=== PATIENT | female | born 1950 | race Two or more races ===

== ENCOUNTER 2020-03-16 08:55 | Outpatient (REF) | payer MEDICARE, MEDICAID, SELFPAY ==
[2020-03-16 10:42] LABS: Alanine Aminotransferase 18 U/L (0-31); Albumin Level 4.2 g/dL (3.5-5.0); Alkaline Phosphatase 99 U/L (39-117); Aspartate Amino Transferase 25 U/L (5-31); Bilirubin Direct 0.2 mg/dL (0.0-0.5); Bilirubin Total 0.5 mg/dL (0.0-1.0); Cholesterol 203 mg/dL; HDL Cholesterol 48 mg/dL; LDL Cholesterol Calculated 134 mg/dl; Total Protein 6.9 g/dL (6.5-8.0); Triglycerides 109 mg/dL
== END 2020-03-16 08:56 | disposition home or self-care (01) ==
LOC: HO.LAB 08:55
PROVIDERS: PCP Internal Medicine; Visit Provider Internal Medicine
DX: I10 Essential (primary) hypertension (principal); F41.9 Anxiety disorder, unspecified; K21.9 Gastro-esophageal reflux disease without esophagitis; E78.00 Pure hypercholesterolemia, unspecified; M25.511 Pain in right shoulder; M25.562 Pain in left knee
CPT/HCPCS: 36415; 80061; 80076

== ENCOUNTER 2020-08-13 10:14 | Outpatient (REF) | payer MEDICARE, MEDICAID, SELFPAY ==
--- NOTE | ~2020-08-13 | XR_ITS ---
EXAMINATION: XR BILATERAL HIPS WITH AP PELVIS CLINICAL INFORMATION: Low back pain. COMPARISON: None TECHNIQUE: AP view of the pelvis and single views of each hip were obtained. FINDINGS: Minimal degenerative joint changes are seen bilaterally. 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 There is no acute fracture. The bony pelvis is intact. The soft tissues are unremarkable. XR/XR hip BI w PEL1V IMPRESSION: Minimal bilateral hip degenerative joint changes and mild protrusio acetabuli bilaterally without acute abnormality.
== END 2020-08-13 10:15 | disposition home or self-care (01) ==
LOC: HO.XRAY 10:14
PROVIDERS: PCP Internal Medicine; Visit Provider Internal Medicine
DX: M54.5 Low back pain (principal)
CPT/HCPCS: 73521

== ENCOUNTER 2020-08-19 11:38 | Outpatient (REF) | payer MEDICARE, MEDICAID, SELFPAY ==
--- NOTE | ~2020-08-19 | MM_ITS ---
EXAMINATION: MM SCREENING DIGITAL BREAST TOMOSYNTHESIS, BILATERAL CLINICAL INFORMATION: Screening. Asymptomatic. The lifetime risk of breast cancer based on the Tyrer-Cuzick Model is 2.5%. COMPARISON: Mammography: 01/25/2019 and studies dating back to 10/23/2013 TECHNIQUE: Digital breast tomosynthesis is performed in both the craniocaudal and mediolateral oblique views along with computer-aided detection (CAD). Synthesized 2D images are generated from the tomosynthesis. FINDINGS: There are scattered areas of fibroglandular density (ACR BI-RADS breast composition Category b). There is a stable appearance of the left breast with no new abnormal dominant mass or suspicious grouping of microcalcifications. About the anterior upper outer aspect of the right breast, there is a region of architectural distortion for which spot compression views and ultrasound is recommended. MM/MM tomosynthesis screening BI IMPRESSION: Right breast density for further evaluation, as described. ASSESSMENT: BI-RADS 0: Incomplete - Need Additional Imaging Evaluation RECOMMENDATION: 1. Additional views of the right breast. 2. Targeted ultrasound if warranted after review of the additional views. 3. Radiology department staff will contact the patient for additional imaging. This patient's information was entered into a reminder system with a target due date for their next mammogram.
== END 2020-08-19 11:39 | disposition home or self-care (01) ==
LOC: HO.MAMMO 11:38
PROVIDERS: Visit Provider Internal Medicine
DX: Z12.31 Encounter for screening mammogram for malignant neoplasm of breast (principal)
CPT/HCPCS: 77063; 77067

== ENCOUNTER 2020-08-31 09:53 | Outpatient (REF) | payer MEDICARE, MEDICAID, SELFPAY ==
--- NOTE | ~2020-08-31 | MM_ITS ---
EXAMINATION: MM DIAGNOSTIC DIGITAL BREAST TOMOSYNTHESIS, RIGHT CLINICAL INFORMATION: Recall from screening for question of asymmetric density and/or architectural changes anterior upper outer right breast. TC score 3%. COMPARISON: Mammography: 08/19/2020, 01/25/2019, 01/22/2018, 01/19/2017, 12/16/2015, 11/13/2014 TECHNIQUE: Digital breast tomosynthesis is performed. 2D images are generated from the tomosynthesis. The following views are obtained: 3-D spot CC, 3-D spot ML. FINDINGS: There are scattered areas of fibroglandular density (ACR BI-RADS breast composition Category b). The additional views show fibroglandular tissue in the area of interest similar to multiple prior exams. There is no developing density or interval mass or architectural abnormality. No significant changes. Results are discussed with the patient at time of visit, using an bakery supervisor. MM/MM tomosynthesis added views R IMPRESSION: Additional views show fibroglandular tissue similar to prior studies. No significant changes. ASSESSMENT: BI-RADS 2: Benign RECOMMENDATION: Routine annual mammography screening. This patient's information was entered into a reminder system with a target due date for their next mammogram.
== END 2020-08-31 09:54 | disposition home or self-care (01) ==
LOC: HO.MAMMO 09:53
PROVIDERS: Visit Provider Internal Medicine
DX: R92.2 Inconclusive mammogram (principal)
CPT/HCPCS: 77061; 77065

== ENCOUNTER 2020-12-28 09:13 | Outpatient (REF) | payer MEDICARE, MEDICAID, SELFPAY ==
[2020-12-28 09:43] LABS: MANUAL DIFF FLAG NO
[2020-12-28 09:54] LABS: Basophils Percent Auto 0.4 % (0-2); Eosinophils Absolute Auto 0.4 X10*3/uL (0.0-0.4); Hematocrit 40.8 % (37-47); Hemoglobin 13.4 g/dl (12.0-16.0); Imm Gran Abs Auto 0.03 X10*3/uL (0.00-0.03); Imm Gran Pct Auto 0.4 % (0.0-0.4); Lymphocytes Absolute Auto 2.3 X10*3/uL (1.2-4.9); Mean Corpuscular HGB Conc 32.8 g/dl (31.0-35.0); Mean Corpuscular Hemoglobin 30.2 pg (27.0-33.0); Mean Corpuscular Volume 92.1 fL (80-98); Mean Platelet Volume 11.1 fL (9.4-12.3); Monocytes Absolute Auto 0.6 X10*3/uL (0.1-1.2); Monocytes Percent Auto 8.4 % (2-11); Neutrophils Absolute Auto 4.1 X10*3/uL (2.0-8.3); Neutrophils Percent Auto 54.8 % (45-73); Platelet Count 169 X10*3/uL (160-400); Red Blood Count 4.43 X10*6/uL (4.20-5.50); Red Cell Distribution Width 13.6 % (11.0-16.0); White Blood Count 7.5 X10*3/uL (4.8-10.8)
[2020-12-28 10:16] LABS: Alanine Aminotransferase 12 U/L (0-31); Albumin Level 4.1 g/dL (3.5-5.0); Alkaline Phosphatase 93 U/L (39-117); Anion Gap 10 (12-20); Aspartate Amino Transferase 23 U/L (5-31); Bilirubin Total 0.7 mg/dL (0.0-1.0); Blood Urea Nitrogen 20 mg/dL (9-16); Calcium 9.7 mg/dL (8.4-10.2); Carbon Dioxide 29 mmol/L (22-29); Chloride 105 mmol/L (96-108); Cholesterol 211 mg/dL; Estimated Glomerular Filt Rate 56; Glucose Random 82 mg/dL (60-115); HDL Cholesterol 43 mg/dL; LDL Cholesterol Calculated 144 mg/dl; Potassium 4.7 mmol/L (3.3-5.1); Sodium 139 mmol/L (135-145); Total Protein 6.9 g/dL (6.5-8.0); Triglycerides 122 mg/dL
[2020-12-28 10:40] LABS: Free T4 (Free Thyroxine) 0.91 ng/dL (0.71-1.85); Thyroid Stimulating Hormone 1.56 uIU/mL (0.32-4.0); Vitamin D 25-OH Total 34.4 ng/mL (>30)
[2020-12-28 10:46] LABS: Folate 12.2 ng/mL (> or = 4.0); Vitamin B12 421 pg/mL (200-900)
== END 2020-12-28 09:14 | disposition home or self-care (01) ==
LOC: HO.LAB 09:13
PROVIDERS: PCP Internal Medicine; Visit Provider Internal Medicine
DX: E78.00 Pure hypercholesterolemia, unspecified (principal)
CPT/HCPCS: 36415; 80053; 80061; 82306; 82607; 82746; 84439; 84443; 85025

== ENCOUNTER → 2021-05-27 11:06 | Outpatient (BNVA) | payer MEDICARE, MEDICAID, SELFPAY | PROVIDERS: PCP Internal Medicine; Visit Provider Internal Medicine Endocrinology, Diabetes & Metabolism | DX: E04.1 Nontoxic single thyroid nodule (principal) | CPT/HCPCS: 99212 ==

== ENCOUNTER 2021-07-09 09:04 | Outpatient (REF) | payer MEDICARE, MEDICAID, SELFPAY ==
--- NOTE | ~2021-07-09 | XR_ITS ---
EXAMINATION: XR chest 2V CLINICAL INFORMATION: Reason for Exam Z72.0 - Tobacco use COMPARISON: Chest radiograph 10/19/2015 TECHNIQUE: 2 views of the chest XR/XR chest 2V FINDINGS/IMPRESSION: Suspect underlying emphysema. No focal consolidation. No pneumothorax. No pleural effusion. Normal cardiomediastinal silhouette.
--- NOTE | ~2021-07-09 | FL_ITS ---
EXAMINATION: XR FLUOROSCOPY UPPER GI WITH AIR CLINICAL INFORMATION: Dysphagia COMPARISON: CT from 03/21/2018 TECHNIQUE: Fluoroscopic assessment of the upper GI tract was performed in various upright and supine/prone obliquities utilizing thin density barium contrast material. FINDINGS: The esophagus was normal in course, caliber, and contour. There was normal distensibility with no fixed segment of narrowing. No focal mucosal abnormality was identified. Mild esophageal dysmotility was seen with small volume retention of contrast in the esophagus. No abnormal tertiary contractions. Contrast passed freely across the gastroesophageal junction into the stomach. No significant hiatal hernia. There was normal distensibility of the stomach with no focal abnormality identified. There was somewhat slow gastric emptying into the duodenum which demonstrated a normal appearance. While a small amount of contrast did exit into the duodenum, the majority stayed within the stomach. No gastroesophageal reflux was observed. FLUOROSCOPY TIME: 2.9 minutes DOSE AREA PRODUCT: 21.028 Gy-cm2 (perea-centimeter squared) FL/FL upper GI w air IMPRESSION: Mild esophageal dysmotility. Somewhat slow gastric emptying. While a small amount of contrast did extend into the small bowel, the majority of the contrast remained in the stomach for the entirety of the exam.
== END 2021-07-09 09:05 | disposition home or self-care (01) ==
LOC: HO.XRAY 09:04
PROVIDERS: PCP Internal Medicine; Visit Provider Internal Medicine
DX: R13.10 Dysphagia, unspecified (principal); Z72.0 Tobacco use
CPT/HCPCS: 71046; 74246

== ENCOUNTER 2021-07-29 10:42 | Outpatient (REF) | payer MEDICARE, MEDICAID, SELFPAY ==
--- NOTE | ~2021-07-29 | US_ITS ---
EXAMINATION: US THYROID CLINICAL INFORMATION: Nontoxic multinodular goiter. COMPARISON: US thyroid 03/21/2018 and 02/13/2017. US-guided thyroid biopsy 01/21/2016. TECHNIQUE: Linear transducer grayscale and color Doppler examination with attention to the region of the thyroid. FINDINGS: SIZE: Measurements of the thyroid lobes and nodules are given in sagittal, anteroposterior and transverse dimensions respectively. Right Thyroid Lobe: 4.3 x 1.3 x 1.4 cm, volume 3.9 mL. Previously 4.5 x 1.4 x 1.5 cm, volume 4.8 mL. Parenchyma: The gland echotexture is homogeneous. Thyroid vascularity is normal. Left Thyroid Lobe: 5.7 x 1.8 x 2.1 cm, volume 11.5 mL. Previously 5.4 x 1.7 x 2.1 cm, volume 9.7 mL. Parenchyma: The gland echotexture is homogeneous. Thyroid vascularity is normal. Isthmus: 0.20 cm in maximum AP dimension. Previously 0.20 cm. Estimated total number of nodules greater than or equal to 1 cm: 4. Label Fuser Tender nodules are described as follows: 1. Location: Right superior. Size: 0.25 x 0.16 x 0.23 cm, volume 0.005 mL. Previously: Not documented on the previous study. Nodule characteristics: Composition: Spongiform (0). Echogenicity: Anechoic (0). Shape: Not taller than wide (0). Margins: Smooth (0). Echogenic Foci: None (0). ACR TI-RADS total points: 0 ACR TI-RADS category: 1 2. Location: Left mid. Size: 1.2 x 1.1 x 1.2 cm, volume 0.75 mL. Previously: Not documented on the previous study. Nodule characteristics: Composition: Spongiform (0). Echogenicity: Anechoic (0). Shape: Not taller than wide (0). Margins: Smooth (0). Echogenic Foci: None (0). ACR TI-RADS total points: 0 ACR TI-RADS category: 1 3. Location: Left mid. Size: 1.6 x 1.3 x 1.4 cm, volume 1.5 mL. Previously: Not documented on the previous study. Nodule characteristics: Composition: Solid/almost completely solid (2). Echogenicity: Hypoechoic (2). Shape: Not taller than wide (0). Margins: Smooth (0). Echogenic Foci: Punctate echogenic foci (3). ACR TI-RADS total points: 7 ACR TI-RADS category: 5 4. Location: Left inferior. Size: 1.8 x 0.90 x 1.2 cm, volume 0.94 mL. Previously: Not documented on the previous study. Nodule characteristics: Composition: Solid/almost completely solid (2). Echogenicity: Isoechoic (1). Shape: Not taller than wide (0). Margins: Smooth (0). Echogenic Foci: None (0). ACR TI-RADS total points: 3 ACR TI-RADS category: 3 5. Location: Left inferior. Size: 1.6 x 0.73 x 1.2 cm, volume 0.73 mL. Previously: Not documented on the previous study. Nodule characteristics: Composition: Solid/almost completely solid (2). Echogenicity: Isoechoic (1). Shape: Not taller than wide (0). Margins: Smooth (0). Echogenic Foci: None (0). ACR TI-RADS total points: 3 ACR TI-RADS category: 3 NODES: No lymphadenopathy is seen in the tissue surrounding the thyroid gland. US/US thyroid IMPRESSION: Bilateral thyroid nodules are seen, as detailed.. The 1.6 cm and maximal diameter left thyroid lobe nodule meets ACR biopsy criteria and is amenable to ultrasound-guided biopsy, if clinically indicated and not already performed. ACR TI-RADS RECOMMENDATION REFERENCE: Ultrasound-guided fine-needle aspiration, followup ultrasound, no further follow up. * TR1 (0 point) and TR 2 (2 points): No FNA or follow up * TR3 (3 points): FNA if more than or equal to 2.5 cm in maximum dimension, followup ultrasound in 1, 3 and 5 years if 1.5 to 2.4 cm in maximum dimension. * TR4 (4-6 points): FNA if more than or equal to 1.5 cm in maximum dimension, followup ultrasound in 1, 2, 3 and 5 years if 1 to 1.4 cm in maximum dimension. * TR5 (more than or equal to 7 points): FNA if more than or equal to 1 cm in maximum dimension, followup ultrasound every year for 5 years if 0.5 to 0.9 cm in maximum dimension. * TR3, TR4 or TR5 nodules that are below the size threshold for follow up receive no follow up.
== END 2021-07-29 10:43 | disposition home or self-care (01) ==
LOC: HO.US 10:42
PROVIDERS: Visit Provider Internal Medicine Endocrinology, Diabetes & Metabolism
DX: E04.2 Nontoxic multinodular goiter (principal)
CPT/HCPCS: 76536

== ENCOUNTER 2021-10-21 13:00 | Outpatient (RCR) | payer MEDICARE, MEDICAID, SELFPAY ==
[2021-08-30 10:15] VITALS: BP 147/77; PULSE 58; O2SAT 98
--- NOTE | 2021-08-30 11:19 | MHC.PT.EP ---
[facility] Office [place] Office [place] Office [address] Philip Oscar [address] [phone] F: [phone] F: [phone] F: [phone] F: [phone] Physical Therapy Plan of Care Date of Evaluation: Date of Surgery: Diagnosis: LBP Assessment: 71 YO FEMALE REF TO PT WITH LBP/ Rt SCIATICA. 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 Pt CURRENTLY AMB W A CANE. SHE HAS INCREASING RIGHT HIP AND LUMBOSACRAL PAIN OVER THE LAST FEW MONTHS. UPON EXAM SHE DEMONSTRATES DECREASED JUNAID HIP ROM, ALTERED POSTURE AND PELVIC POSITIONING, ALTERED SOFT TISSUE MOBILITY AND INCREASED LB AND Rt LE RADIC PAIN. FUNCTIONAL LIMITATIONS INCLUDE DECREASED ABILITY TO PERFORM STATIC STANDING, AMBULATION GREATER THAN 10 MINS WITHOUT INCREASED PAIN, DECREASED ABILITY TO PERFORM STAIR NAVIGATION. SHE REPORTS DECREASED ABILITY TO PERFORM HOMEMAKING AND SELF CARE TASKS AND REPORTS DISRUPTED SLEEP. Pt IS A GOOD PT CANDIDATE TO ADDRESS THE ABOVE FINDINGS, PAIN MGMT, DEV SELF- SX MGMT STRATEGIES, AND MAXIMIZING FUNCTIONAL INDEPENDENCE, W CAR CONSTRUCTION SUPERINTENDENT ASSIST. Frequency and Duration: The patient will be seen 2 x WK x 4 WKS Short Term Goals: *Pt'S LBP DECR TO 2-3/10 AND Rt LE SXS DECR BY 50% IN 2 WKS *Pt DEMON IMPROVED FLEXIBILITY IN JUNAID HIP ROTAT / HS IN 2 WKS * Pt DEMON PROPER FUNCT SQUAT AND POSTURAL SELF-CORRECT TECHN IN 2 WKS Fpc Goals: *Pt AND HER CAREGIVER INDEP W HEP, PROGRESSIVE STRENGTHENING, AND SELF-SX MGMT STRATEGIES IN 4 WKS *Pt DEMON INDEP SELF CORRECT POSTURE/ POSITIONING TO REDUCE LB STRESS *Pt INITIATE WALKING PGM W HER CAR CONSTRUCTION SUPERINTENDENT IN 4 WKS Treatment Plan: Modalities to reduce pain, spasms and effusion. Manual therapy to restore motion and function. Therapeutic exercise to improve strength and flexibility. Neuromuscular re-education for posture and balance. Therapeutic activities to return to functional activities of daily living. Electronically signed by: Aurora Villar,PT Please sign and return to therapist. Thank you for your referral.
--- NOTE | 2021-10-21 15:17 | MHC.PT.DC ---
[facility] [place] Office [place] Office [place] Office [address] Philip Oscar [address] [phone] F: [phone] F: [phone] F: [phone] F: [phone] Physical Therapy Discharge Report Diagnosis: LBP Date of Surgery: Date of Evaluation: 08/30/21 Date of Discharge: 10/21/21 Treatments to Date: 7 Cancellations to Date: 1 No Shows to Date: 1 Discharge Status: Improved Function Discharge Summary: Pt HAS MADE SOME PROGRESS IN PT, ADDRESSING HER LBP. 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 HER OSWESTRY SCORE HAS IMPROVED- SHE DEMON IMPROVED POSTURAL AWARENESS, GAIT EFFICIENCY (W RESPECT TO HER KNEE PAIN). Pt IS D/C AT THIS TIME W HER HEP- SHE MET HER PT GOALS TO MAX POTENTIAL AT THIS TIME. Electronically signed by: Aurora Villar,PT Please sign and return to therapist. Thank you for your referral.
== END 2021-10-21 15:17 | disposition home or self-care (01) ==
LOC: HO.PT 13:00
PROVIDERS: PCP Internal Medicine; Visit Provider Nurse Practitioner Family
DX: M54.50 Low back pain, unspecified (principal)
CPT/HCPCS: 97110; 97140; 97162; 97530

== ENCOUNTER 2021-12-16 12:26 | Outpatient (REF) | payer MEDICARE, MEDICAID, SELFPAY ==
--- NOTE | ~2021-12-16 | MM_ITS ---
EXAMINATION: MM SCREENING DIGITAL BREAST TOMOSYNTHESIS, BILATERAL CLINICAL INFORMATION: Screening. Asymptomatic. The lifetime risk of breast cancer based on the Tyrer-Cuzick Model is 2%. COMPARISON: Mammography: 08/31/2020, 08/19/2020, 01/25/2019, 01/22/2018 TECHNIQUE: Digital breast tomosynthesis is performed in both the craniocaudal and mediolateral oblique views along with computer-aided detection (CAD). Synthesized 2D images are generated from the tomosynthesis. FINDINGS: There are scattered areas of fibroglandular density (ACR BI-RADS breast composition Category b). There are no significant masses, abnormal calcifications, or other abnormalities. Parenchymal pattern is similar to prior studies. The axilla and skin contours are unremarkable. MM/MM tomosynthesis screening BI IMPRESSION: No mammographic evidence of malignancy. ASSESSMENT: BI-RADS 1: Negative RECOMMENDATION: Routine annual mammography screening. This patient's information was entered into a reminder system with a target due date for their next mammogram.
== END 2021-12-16 12:27 | disposition home or self-care (01) ==
LOC: HO.MAMMO 12:26
PROVIDERS: PCP Internal Medicine; Visit Provider Internal Medicine
DX: Z12.31 Encounter for screening mammogram for malignant neoplasm of breast (principal)
CPT/HCPCS: 77063; 77067

== ENCOUNTER 2022-01-13 09:28 | Outpatient (REF) | payer MEDICARE, MEDICAID, SELFPAY ==
--- NOTE | 2022-01-13 10:17 | P.BOP_ITS ---
Brief Operative Note Date of Service: 01/13/22 Pre-op diagnosis: Multinodular Thyroid Procedure: The Patient presented for repeat thyroid US with possible FNA biopsy today. She had a previous FNA biopsy of a 3.0 x 0.8 x 1.8 cm thyroid nodule in [address] Vidales with benign cytology. US of the thyroid today revealed a solitary nodule within the L mid pole measuring 2.8 x 1.9 x 1.5 cm. No FNA biopsy indicated as this nodule has not significant grown or changed in size. Surgeon: Yue Virk, DO Was an Motorized Squad Sergeant used for this Procedure?: No Estimated blood loss (mL): 0
== END 2022-01-13 09:29 | disposition home or self-care (01) ==
LOC: HO.US 09:28
PROVIDERS: Visit Provider Internal Medicine Endocrinology, Diabetes & Metabolism
DX: E04.1 Nontoxic single thyroid nodule (principal)
CPT/HCPCS: 76536

== ENCOUNTER → 2022-01-27 12:18 | Outpatient (BNVA) | payer MEDICARE, MEDICAID, SELFPAY | PROVIDERS: PCP Internal Medicine; Visit Provider Internal Medicine | DX: E04.2 Nontoxic multinodular goiter (principal) | CPT/HCPCS: 99212 ==

== ENCOUNTER 2022-08-11 01:46 | Emergency (ER) | payer MEDICARE, MEDICAID, SELFPAY ==
--- NOTE | ~2022-08-11 | CT_ITS ---
EXAMINATION: CT HEAD WITHOUT CONTRAST CLINICAL INFORMATION: Fall COMPARISON: 05/03/2014 TECHNIQUE: Contiguous axial imaging was performed from the skull base to vertex without intravenous administration of contrast. This CT examination was performed using dose optimization techniques as appropriate, variously including the following: *Automated exposure control *Adjustment of mA and/or kV according to patient size (this includes techniques or standardized protocols for targeted exams where dose is matched to indication/reason for exam; i.e. extremities or head) *Use of iterative reconstruction technique DLP: 564 mGy-cm FINDINGS: There is no evidence of acute intracranial hemorrhage or territorial infarction. No abnormal mass-effect or midline shift is seen. Gonzalez to white matter differentiation is well preserved. No extra-axial fluid collections are identified. The ventricles are normal in size. There is moderate periventricular white matter hypoattenuation consistent with chronic small vessel ischemic disease. The osseous structures and soft tissues are normal. There is mucosal thickening throughout the ethmoid air cells and to a lesser degree in the right sphenoid, left maxillary, and left frontal sinuses. The mastoid air cells are well-aerated. CT/CT head/brain wo IV con IMPRESSION: No acute intracranial pathology. Chronic small vessel ischemic disease.
[2022-08-11 01:51] VITALS: BP 156/84; PULSE 56; O2SAT 100
[2022-08-11 02:02] VITALS: BP 178/80; PULSE 50; RESP 16; TEMP 36.7; O2SAT 98; BMI 23.5
--- NOTE | 2022-08-11 02:13 | MHC.EDTECH ---
PATIENT CAME IN VIA [facility] ,PATIENT WAS TAKEN TO THE BATHROOM AND WAS ASSISTED TO CHANGE INTO (GREEN GOWN AND BLUE PANTS ),PATIENT ANDREA WAS LOCKED UP IN POD LOCKER # 7.
--- NOTE | 2022-08-11 03:12 | MHC.EDTECH ---
blood drawn and urine sample collected and sent to lab ,pt had a sandwich and a glass of water for snack .
[2022-08-11 03:17] LABS: Basophils Percent Auto 0.5 % (0-2); Eosinophils Absolute Auto 0.5 X10*3/uL (0.0-0.4); Eosinophils Percent Auto 6.1 % (0-4); Hematocrit 39.7 % (37.0-47.0); Imm Gran Abs Auto 0.02 X10*3/uL (0.00-0.03); Imm Gran Pct Auto 0.3 % (0.0-0.4); Lymphocytes Absolute Auto 3.5 X10*3/uL (1.2-4.9); Lymphocytes Percent Auto 45.3 % (20-40); MANUAL DIFF FLAG NO; Mean Corpuscular HGB Conc 32.7 g/dl (31.0-35.0); Mean Corpuscular Hemoglobin 29.9 pg (27.0-33.0); Mean Corpuscular Volume 91.3 fL (80.0-98.0); Mean Platelet Volume 10.5 fL (9.4-12.3); Monocytes Absolute Auto 0.6 X10*3/uL (0.1-1.2); Monocytes Percent Auto 7.5 % (2-11); Neutrophils Absolute Auto 3.1 x10*3/uL (2.0-8.3); Neutrophils Percent Auto 40.3 % (45-73); Platelet Count 172 X10*3/uL (160-400); Red Blood Count 4.35 X10*6/uL (4.20-5.50); Red Cell Distribution Width 13.5 % (11.0-16.0); White Blood Count 7.7 X10*3/uL (4.8-10.8)
[2022-08-11 03:28] LABS: Amphetamine Screen Urine Not Detected (Not Detect); Barbiturates, Urine Not Detected (Not Detect); Benzodiazepines Screen Urine Not Detected (Not Detect); Cannabinoid Screen Urine Not Detected (Not Detect); Cocaine Screen Urine Not Detected (Not Detect); Fentanyl, urine Not Detected (Not Detect); Opiate Screen Urine Not Detected (Not Detect); Phencyclidine Screen Urine Not Detected (Not Detect)
[2022-08-11 03:33] LABS: Alanine Aminotransferase 14 U/L (0-31); Albumin Level 4.1 g/dL (3.5-5.0); Alkaline Phosphatase 91 U/L (39-117); Anion Gap 11 (12-20); Aspartate Amino Transferase 31 U/L (5-31); Bilirubin Total 0.3 mg/dL (0.0-1.0); Blood Urea Nitrogen 21 mg/dL (9-16); Calcium 9.6 mg/dL (8.4-10.2); Carbon Dioxide 27 mmol/L (22-29); Chloride 103 mmol/L (96-108); Creatinine Clr Calc Pharmacy 38.1; Estimated Glomerular Filt Rate 59; Ethanol 133 mg/dL; Glucose Random 82 mg/dL (60-115); Potassium 4.3 mmol/L (3.3-5.1); Sodium 137 mmol/L (135-145); Total Protein 7.1 g/dL (6.5-8.0)
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
[2022-08-11 04:00] VITALS: BP 133/64; PULSE 72; RESP 16; TEMP 36.7; O2SAT 97
--- NOTE | 2022-08-11 04:10 | PC.NURSE ---
Pt denia greene, no acute distress at this time, WCTM.
--- NOTE | 2022-08-11 04:24 | MHC.EDTECH ---
0400 rounding done ,vitals sign taken ,cpvid swab collected and sent to lab ,pt sleeping warm blanket giving .
[2022-08-11 04:41] LABS: COVID-19 Test Negative (Negative); IDNOW Serial# BCCEAD1C
[2022-08-11 06:00] VITALS: BP 125/63; PULSE 63; RESP 16; TEMP 36.8; O2SAT 97
--- NOTE | 2022-08-11 06:00 | MHC.EDTECH ---
0600 rounding done ,vitals sign taken ,pt sleeping .
--- NOTE | 2022-08-11 06:52 | PC.NURSE ---
resting on stretcher, rr even/unlabored. awaiting care team consult per previous shift rn.
[2022-08-11 09:12] LABS: Appearance Urine Clear; Color Urine Yellow; Glucose Urine UA Negative (Negative); Leukocyte Esterase Urine Negative (Negative); Nitrite Urine Negative (Negative); Specific Gravity - Urine <= 1.005 (1.005-1.025); UMIC TRIGGER UACC YES; Urine Blood Trace (Negative); Urine Ketones Negative (Negative); Urine Protein Negative (Neg-Trace)
[2022-08-11 09:14] LABS: Bacteria Urine None Seen (None Seen); Hyaline Casts Urine 0-2 /LPF (0-2); RBC Urine 0-2 /HPF (0-2); Squamous Epithelial Cell Urine 0-2 /HPF (0-2); WBC Urine 0-5 /HPF (0-5)
[2022-08-11 09:25] LABS: Amphetamine Screen Urine Not Detected (Not Detect); Barbiturates, Urine Not Detected (Not Detect); Benzodiazepines Screen Urine Not Detected (Not Detect); Cannabinoid Screen Urine Not Detected (Not Detect); Cocaine Screen Urine Not Detected (Not Detect); Fentanyl, urine Not Detected (Not Detect); Opiate Screen Urine Not Detected (Not Detect); Phencyclidine Screen Urine Not Detected (Not Detect)
--- NOTE | 2022-08-11 09:47 | PC.NURSE ---
pt asking to call hr daughter, phone number for nico in contacts called without answer by this rn. will continue to try and contact daughter for pt.
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
== END 2022-08-11 10:55 | disposition home or self-care (01) ==
PROVIDERS: Physician Assistant; Emergency Provider Internal Medicine
DX: F33.1 Major depressive disorder, recurrent, moderate (principal); R45.851 Suicidal ideations; R51.9 Headache, unspecified; F10.129 Alcohol abuse with intoxication, unspecified; Y90.6 Blood alcohol level of 120-199 mg/100 ml; Z20.822 Contact with and (suspected) exposure to COVID-19; Z20.828 Contact with and (suspected) exposure to other viral communicable diseases; F17.200 Nicotine dependence, unspecified, uncomplicated; Z71.6 Tobacco abuse counseling; Z79.899 Other long term (current) drug therapy
CPT/HCPCS: 36415; 70450; 80053; 80307; 81001; 85025; 87635; 99284

== ENCOUNTER 2022-09-10 03:33 | Emergency (ER) | payer MEDICARE, MEDICAID, SELFPAY ==
[2022-09-10 03:45] VITALS: BP 142/76; BP 172/85; PULSE 52; RESP 18; TEMP 36.6; O2SAT 99; BMI 21.6
[2022-09-10 04:24] LABS: MANUAL DIFF FLAG NO
[2022-09-10 04:26] LABS: Basophils Percent Auto 0.5 % (0-2); Eosinophils Absolute Auto 0.4 X10*3/uL (0.0-0.4); Eosinophils Percent Auto 4.7 % (0-4); Hematocrit 37.3 % (37.0-47.0); Hemoglobin 12.5 g/dl (12.0-16.0); Imm Gran Abs Auto 0.01 X10*3/uL (0.00-0.03); Imm Gran Pct Auto 0.1 % (0.0-0.4); Lymphocytes Absolute Auto 3.6 X10*3/uL (1.2-4.9); Lymphocytes Percent Auto 48.5 % (20-40); Mean Corpuscular HGB Conc 33.5 g/dl (31.0-35.0); Mean Corpuscular Hemoglobin 30.3 pg (27.0-33.0); Mean Corpuscular Volume 90.5 fL (80.0-98.0); Mean Platelet Volume 10.5 fL (9.4-12.3); Monocytes Absolute Auto 0.6 X10*3/uL (0.1-1.2); Monocytes Percent Auto 8.4 % (2-11); Neutrophils Absolute Auto 2.8 x10*3/uL (2.0-8.3); Neutrophils Percent Auto 37.8 % (45-73); Platelet Count 166 X10*3/uL (160-400); Red Blood Count 4.12 X10*6/uL (4.20-5.50); Red Cell Distribution Width 13.7 % (11.0-16.0); White Blood Count 7.4 X10*3/uL (4.8-10.8)
[2022-09-10 04:27] LABS: Appearance Urine Clear; Color Urine Yellow; Glucose Urine UA Negative (Negative); Leukocyte Esterase Urine Negative (Negative); Nitrite Urine Negative (Negative); Specific Gravity - Urine <= 1.005 (1.005-1.025); UMIC TRIGGER UACC YES; Urine Blood Trace (Negative); Urine Ketones Negative (Negative); Urine Protein Negative (Neg-Trace)
[2022-09-10 04:35] LABS: Amphetamine Screen Urine Not Detected (Not Detect); Barbiturates, Urine Not Detected (Not Detect); Benzodiazepines Screen Urine Not Detected (Not Detect); Cannabinoid Screen Urine Not Detected (Not Detect); Cocaine Screen Urine Not Detected (Not Detect); Fentanyl, urine Not Detected (Not Detect); Opiate Screen Urine Not Detected (Not Detect); Phencyclidine Screen Urine Not Detected (Not Detect)
[2022-09-10 04:38] LABS: Bacteria Urine None Seen (None Seen); Hyaline Casts Urine 0-2 /LPF (0-2); RBC Urine 0-2 /HPF (0-2); Squamous Epithelial Cell Urine 0-2 /HPF (0-2); WBC Urine 0-5 /HPF (0-5)
[2022-09-10 04:39] LABS: Anion Gap 12 (12-20); Blood Urea Nitrogen 16 mg/dL (9-16); Calcium 9.4 mg/dL (8.4-10.2); Carbon Dioxide 27 mmol/L (22-29); Chloride 101 mmol/L (96-108); Estimated Glomerular Filt Rate > 60; Ethanol 168 mg/dL; Glucose Random 93 mg/dL (60-115); Potassium 3.5 mmol/L (3.3-5.1); Sodium 136 mmol/L (135-145)
--- NOTE | 2022-09-10 04:44 | PC.NURSE ---
Kel Solano at bedside with pt.
[2022-09-10 04:56] VITALS: BP 141/67; PULSE 57; RESP 18
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
== END 2022-09-10 05:52 | disposition home or self-care (01) ==
PROVIDERS: Emergency Provider Emergency Medicine
DX: F10.920 Alcohol use, unspecified with intoxication, uncomplicated (principal); Y90.6 Blood alcohol level of 120-199 mg/100 ml; F03.90 Unspecified dementia, unspecified severity, without behavioral disturbance, psychotic disturbance, mood disturbance, and anxiety; F20.9 Schizophrenia, unspecified; I10 Essential (primary) hypertension; E78.00 Pure hypercholesterolemia, unspecified; F17.210 Nicotine dependence, cigarettes, uncomplicated; Z79.899 Other long term (current) drug therapy
CPT/HCPCS: 36415; 80048; 80307; 81001; 85025; 93005; 99283

== ENCOUNTER 2022-09-28 11:19 | Outpatient (REF) | payer MEDICARE, MEDICAID, SELFPAY ==
--- NOTE | ~2022-09-28 | US_ITS ---
EXAMINATION: US THYROID CLINICAL INFORMATION: Nontoxic single thyroid nodule. Prior biopsy 07/29/2021 COMPARISON: Ultrasound thyroid 01/13/2022 and 07/29/2021. TECHNIQUE: Linear transducer grayscale and color Doppler examination with attention to the region of the thyroid. FINDINGS: SIZE: Measurements of the thyroid lobes and nodules are given in sagittal, anteroposterior and transverse dimensions respectively. Right Thyroid Lobe: 4.3 x 1.2 x 1.3 cm, volume 3.5 mL. Previously 4.3 x 1.3 x 1.4 cm, volume 3.9 mL. Parenchyma: The gland echotexture is homogeneous. Thyroid vascularity is normal. Left Thyroid Lobe: 5.2 x 1.5 x 2.2 cm, volume 9.0 mL. Previously 5.7 x 1.8 x 2.1 cm, volume 11.5 mL. Parenchyma: The gland echotexture is heterogeneous. Thyroid vascularity is normal. Isthmus: 0.2 cm in maximum AP dimension. Previously 0.2 cm. Estimated total number of nodules greater than or equal to 1 cm: 1. [employer] nodules are described as follows: 1. Location: Left mid inferior. Size: 3.6 x 1.4 x 2.0 cm, volume 5.3 mL. Previously: 3.1 x 1.5 x 1.7 cm, volume 4.1 mL. Nodule characteristics: Composition: Solid (2). Echogenicity: Isoechoic (1). Shape: Not taller than wide (0). Margins: Ill-defined (0). Echogenic Foci: Macrocalcifications (1). Punctate echogenic foci (3). ACR TI-RADS total points: 7 ACR TI-RADS category: 5 Significant change in size (>/= 20% in 2 dimensions and minimal increase of 2 mm or 50% or greater increase in volume): No Change in features: No Change in ACR TI-RADS risk category: Not applicable NODES: No lymphadenopathy is seen in the tissue surrounding the thyroid gland. US/US thyroid IMPRESSION: No significant change in 3.6 cm nodule in the mid to lower pole of the left lobe. TR 5. This fulfills the ACR criteria for FNA, if not already performed. ACR TI-RADS RECOMMENDATION REFERENCE: Ultrasound-guided fine-needle aspiration, followup ultrasound, no further follow up. * TR1 (0 point) and TR2 (2 points): No FNA or follow up. * TR3 (3 points): FNA if more than or equal to 2.5 cm in maximum dimension, followup ultrasound in 1, 3 and 5 years if 1.5 to 2.4 cm in maximum dimension. * TR4 (4-6 points): FNA if more than or equal to 1.5 cm in maximum dimension, followup ultrasound in 1, 2, 3 and 5 years if 1 to 1.4 cm in maximum dimension. * TR5 (more than or equal to 7 points): FNA if more than or equal to 1 cm in maximum dimension, followup ultrasound every year for 5 years if 0.5 to 0.9 cm in maximum dimension. * TR3, TR4 or TR5 nodules that are below the size threshold for followup receive no follow up.
--- NOTE | ~2022-09-28 | XR_ITS ---
EXAMINATION: XR CHEST CLINICAL INFORMATION: Tobacco use COMPARISON: Chest 07/09/2021 TECHNIQUE: 2 views of the chest were obtained. FINDINGS: There is no significant interval change. Suspect underlying emphysema. No focal consolidation, pneumothorax or pleural effusion. The cardiomediastinal silhouette is within normal limits. Moderate degenerative changes involve the thoracic spine. XR/XR chest 2V IMPRESSION: No acute abnormality.
== END 2022-09-28 11:20 | disposition home or self-care (01) ==
LOC: HO.US 11:19
PROVIDERS: PCP Internal Medicine; Visit Provider Internal Medicine
DX: E04.1 Nontoxic single thyroid nodule (principal); Z72.0 Tobacco use
CPT/HCPCS: 71046; 76536

== ENCOUNTER 2023-01-02 10:56 | Outpatient (AMB) | payer MEDICARE, MEDICAID, SELFPAY ==
[2023-01-02 10:59] VITALS: BP 140/78; PULSE 62; O2SAT 97; BMI 20.4
--- NOTE | 2023-01-02 10:59 | MHC.PC.OV ---
Vital Signs 01/02/23 10:59 Height 5 ft 4 in Weight 119 lb BMI 20.4 BP 140/78 H Blood Pressure Location Lt brachial Position Sitting Pulse 62 Pulse Source Pulse Oximeter Temp Source Skin Pulse Oximetry (%) 97 Oxygen Delivery Method Room Air Intake Visit Reasons: dysphagia, thyroid enlargement Sales Designer Required: No Allergies aspirin [ASA] Allergy (Unknown, Verified 01/02/23 11:03) UNKNOWN ibuprofen [From Motrin] Allergy (Unknown, Verified 01/02/23 11:03) Dizziness Penicillins Allergy (Unknown, Verified 01/02/23 11:03) UNKNOWN rivastigmine [From Exelon] Allergy (Unknown, Verified 01/02/23 11:03) Unknown Medication List - Last Reconciled 01/02/23 by Epifanio Traylor MD cholecalciferol (vitamin D3) (Vitamin D3) 25 mcg PO DAILY 30 days diclofenac sodium 1% (Arthritis Pain (diclofenac)) 2 grams topical QID PRN docusate sodium (Stool Softener) 200 mg (2 x 100 mg) PO DAILY 90 days fluoxetine 20 mg PO DAILY hydrochlorothiazide 25 mg PO DAILY 90 days meloxicam 15 mg PO DAILY metoprolol succinate ER 100 mg PO DAILY omeprazole 20 mg PO DAILY 30 days ondansetron 4 mg PO Q8H PRN 7 days simvastatin 10 mg PO QPM Tobacco use date assessed: 01/02/23 Fall risk assessment: No Falls in past year Last assessed Fall Risk: 01/02/23 Dental Screening Dental Screen Date: 01/02/23 Did you have a dental visit in the last 12 months?: No Did you have a dental problem in the last 6 months where you did not have access to dental care?: No Was dental information given to patient?: Patient has dentist HPI dysphagia, thyroid enlargement HPI Details 72-year-old female smoker with schizophrenia hypercholesterolemia GERD hypertension and dementia coming in for follow-up. Last seen in September for wellness. Patient's mammogram is due next month. Patient had ultrasound of the thyroid September 2022 showing no significant change in the 3.6 cm nodule in the mid to lower pole of the left lobe [facility] Medical History Benign hematuria Breast density Dementia GERD (gastroesophageal reflux disease) Hypercholesterolemia Hypertension Multinodular thyroid Nausea & vomiting Osteoarthritis, knee Renal calculi Schizophrenia Skin tag Thyroid nodule Tobacco abuse Trigger finger of all digits of left hand Vitamin D deficiency Surgical History History of breast biopsy History of carpal tunnel release Hx of biopsy Family History Father Myocardial infarction Mother Sarcoma Brother Kidney disease Brother H/O ETOH abuse Brother No problems noted. Social History (Updated 09/12/22 @ 15:31 by Epifanio Traylor MD) Housing: Apartment Alcohol intake: current Alcohol intake frequency: holidays/special occasions only Patient Tobacco Use Status: Current everyday Tobacco user Tobacco use type: Cigarette Cigarettes Per Day: 7 e-Cigarette/Vaping Use: Never Used Second Hand Smoke Exposure: No Current occupational status: disabled Cognitive needs: Yes Hearing needs: No Vision needs: Yes Questionnaire Thrive Questionnaire Date Thrive assessed: 05/10/21 AUDIT C Alcohol Use Questionnaire (AUDIT-C) 1. How often do you have a drink containing alcohol?: Never Total Score: 0 Score Reviewed/Action Taken: No MARY-7 AMB Questionnaire MARY-7 Date MARY - 7 assessed: 01/02/23 Source: Developed by Drs. Ky Reddy, Aysha Blue, Amrit Butcher and colleagues, with an educational vika from [email or web address]. Physical exam (Primary Care) Vital Signs: Last Vital Signs Pulse 62 01/02/23 10:59 BP 140/78 H 01/02/23 10:59 Pulse Ox 97 01/02/23 10:59 Oxygen Delivery Method Room Air 01/02/23 10:59 BMI result Body Mass Index 20.4 Tobacco/Smoking Status: Tobacco use Status Tobacco use date assessed 01/02/23 01/02/23 11:06 Patient Tobacco Use Status Current everyday Tobacco 01/02/23 11:00 Tobacco use type Cigarette 01/02/23 11:00 e-Cigarette/Vaping Use Never Used 01/02/23 11:00 Thrive Assessment: Date of Thrive Assessment Date Thrive assessed 05/10/21 01/02/23 11:00 Const General: alert; No acute distress Eyes Conjunctivae: conjunctivae normal Resp Auscultation: clear to auscultation bilaterally Cardio Rate: regular rate Rhythm: regular rhythm GI Inspection: Yes normal to inspection Extrem General: Yes normal to inspection and No edema Office Procedures Flu Questionnaire Does the patient have a severe egg allergy?: No Does the patient have severe life threatening allergies?: No Does the patient have a fever or illness today?: No Has the patient ever had Guillain-Stuttgart Syndrome?: No Has the patient ever had any past reaction to a flu shot?: No Immunizations flu vacc [id number] 6mos up(PF) 60 mcg(15 mcgx4)/0.5 mL IM syringe Performing Provider: Epifanio Traylor MD [facility] Administered by: DEREK Dominguez on 01/02/23 11:37 Dose Route Admin Location Dispensed Lot Number Expiration Date [employer] Agent 0.5 mL IM Left Deltoid 0.5 mL [id number] 09/10/23 10277-306-07 [employer] VIS Given Date VIS Provided VIS Publication Date 01/02/23 Single Vaccine 20 Eligibility Eligibility Date Funding Source Not [facility] Eligible 01/02/23 Private Assessment and Plan Assessment & Plan (1) Multinodular thyroid: Comment: September 2022o significant change in 3.6 cm nodule in the mid to lower pole of the left lobe. TR 5. This fulfills the ACR criteria for FNA, if not already performed. Code(s): E04.2 - Nontoxic multinodular goiter Plan: Noted to have a 3.6 cm nodule in the left lobe of the thyroid. 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 (3) Tobacco abuse: Code(s): Z72.0 - Tobacco use Plan: Patient strongly advised to stop smoking summation point (4) Schizophrenia: Comment: [facility] therapy Code(s): F20.9 - Schizophrenia, unspecified Qualifiers: Schizophrenia type: disorganized schizophrenia Qualified Code(s): F20.1 - Disorganized schizophrenia Plan: Continue with counseling and therapy (5) GERD (gastroesophageal reflux disease): Code(s): K21.9 - Gastro-esophageal reflux disease without esophagitis Qualifiers: Esophagitis presence: without esophagitis Qualified Code(s): K21.9 - Gastro-esophageal reflux disease without esophagitis Plan: Avoid the foods that causes that usually spicy foods, tomato products, juices, coffee, soda and foods that your sensitive to. After eating do not lie down, allow 3-4 hours before in lie down. And keep the head of bed above 30 degrees to avoid the acid from going up. (6) Hypertension: Code(s): I10 - Essential (primary) hypertension Qualifiers: Hypertension type: essential hypertension Qualified Code(s): I10 - Essential (primary) hypertension Plan: Continue with blood pressure medication. Decrease salt intake and exercise patient on metoprolol 100 mg once a day hydrochlorothiazide 25 mg once a day (7) Hypercholesterolemia: Code(s): E78.00 - Pure hypercholesterolemia, unspecified Plan: Avoid fried foods, chicken skin, eggs, butter margarine, pastries and meat. Be it pork or beef they have a lot of cholesterol LDL goal of less than 130 and triglyceride of less than 150. Patient is on simvastatin. Reminded about the blood work! 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
== END 2023-01-02 11:40 | disposition home or self-care (01) ==
PROVIDERS: PCP Internal Medicine; Visit Provider Internal Medicine
DX: E04.2 Nontoxic multinodular goiter (principal); J43.9 Emphysema, unspecified; F20.1 Disorganized schizophrenia; F02.818 Dementia in other diseases classified elsewhere, unspecified severity, with other behavioral disturbance; Z23 Encounter for immunization; Z72.0 Tobacco use; K21.9 Gastro-esophageal reflux disease without esophagitis; I10 Essential (primary) hypertension; E78.00 Pure hypercholesterolemia, unspecified
CPT/HCPCS: 90471; 90686; 99214

== ENCOUNTER 2023-01-03 12:30 | Outpatient (REF) | payer MEDICARE, MEDICAID, SELFPAY ==
--- NOTE | ~2023-01-03 | MM_ITS ---
EXAMINATION: MM SCREENING DIGITAL BREAST TOMOSYNTHESIS, BILATERAL CLINICAL INFORMATION: Screening. Asymptomatic. The patient has a history of prior right breast surgery for benign disease. COMPARISON: Mammography: This study is compared with prior exams dating back to 2018. TECHNIQUE: Digital breast tomosynthesis is performed in both the craniocaudal and mediolateral oblique views along with computer-aided detection (CAD). Synthesized 2D images are generated from the tomosynthesis. FINDINGS: There are scattered areas of fibroglandular density (ACR BI-RADS breast composition Category b). There are no significant masses, abnormal calcifications, or other abnormalities. Few, benign calcifications are present in each breast. MM/MM tomosynthesis screening BI IMPRESSION: No mammographic evidence of malignancy. ASSESSMENT: BI-RADS BI-RADS 2 - Benign Findings RECOMMENDATION: Routine annual mammography screening. 1 year F/U This examination should not preclude the clinical evaluation of a suspicious palpable abnormality. This patient's information was entered into a reminder system with a target due date for their next mammogram.
== END 2023-01-03 12:31 | disposition home or self-care (01) ==
LOC: HO.MAMMO 12:30
PROVIDERS: PCP Internal Medicine; Visit Provider Internal Medicine
DX: Z12.31 Encounter for screening mammogram for malignant neoplasm of breast (principal)
CPT/HCPCS: 77063; 77067

== ENCOUNTER → 2023-01-03 12:30 | Outpatient (BNV) | payer MEDICARE, MEDICAID, SELFPAY | PROVIDERS: PCP Internal Medicine; Visit Provider Radiology Diagnostic Radiology | DX: Z12.31 Encounter for screening mammogram for malignant neoplasm of breast (principal) | CPT/HCPCS: 77063; 77067 ==

== ENCOUNTER 2023-04-17 09:33 | Outpatient (AMB) | payer MEDICARE, MEDICAID, SELFPAY ==
[2023-04-17 09:36] VITALS: BP 140/68; PULSE 65; O2SAT 98; BMI 20.6
--- NOTE | 2023-04-17 09:36 | MHC.PC.OV ---
Vital Signs 04/17/23 09:36 Height 5 ft 4 in Weight 120 lb BMI 20.6 BP 140/68 H Blood Pressure Location Lt brachial Position Sitting Pulse 65 Pulse Source Pulse Oximeter Pulse Oximetry (%) 98 Oxygen Delivery Method Room Air Intake Visit Reasons: Hypertension Allergies aspirin [ASA] Allergy (Unknown, Verified 04/17/23 09:36) UNKNOWN ibuprofen [From Motrin] Allergy (Unknown, Verified 04/17/23 09:36) Dizziness Penicillins Allergy (Unknown, Verified 04/17/23 09:36) UNKNOWN rivastigmine [From Exelon] Allergy (Unknown, Verified 04/17/23 09:36) Unknown Medication List - Last Reconciled 04/17/23 by Epifanio Traylor MD cholecalciferol (vitamin D3) (Vitamin D3) 25 mcg PO DAILY 30 days diclofenac sodium 1% (Arthritis Pain (diclofenac)) 2 grams topical QID PRN docusate sodium (Stool Softener) 200 mg (2 x 100 mg) PO DAILY 90 days fluoxetine 20 mg PO DAILY hydrochlorothiazide 25 mg PO DAILY 90 days meloxicam 15 mg PO DAILY metoprolol succinate ER 100 mg PO DAILY omeprazole 20 mg PO DAILY 30 days ondansetron 4 mg PO Q8H PRN 7 days simvastatin 10 mg PO QPM Tobacco use date assessed: 04/17/23 Fall risk assessment: No Falls in past year Last assessed Fall Risk: 04/17/23 Dental Screening Dental Screen Date: 04/17/23 Did you have a dental visit in the last 12 months?: No Did you have a dental problem in the last 6 months where you did not have access to dental care?: No Was dental information given to patient?: No HPI Hypertension HPI Details 72-year-old female smoker with COPD multinodular thyroid GERD hypertension hypercholesterolemia and schizophrenia last seen in December 2022. Patient's mammogram is up-to-date [facility] Medical History Benign hematuria Breast density Dementia GERD (gastroesophageal reflux disease) Hypercholesterolemia Hypertension Multinodular thyroid Nausea & vomiting Osteoarthritis, knee Renal calculi Schizophrenia Skin tag Thyroid nodule Tobacco abuse Trigger finger of all digits of left hand Vitamin D deficiency Surgical History History of breast biopsy History of carpal tunnel release Hx of biopsy Family History (Updated 04/17/23 @ 09:37 by Joycelyn Lara CMA) Father Myocardial infarction Mother Sarcoma Brother Kidney disease Brother H/O ETOH abuse Brother No problems noted. Social History (Updated 09/12/22 @ 15:31 by Epifanio Traylor MD) Housing: Apartment Alcohol intake: current Alcohol intake frequency: holidays/special occasions only Patient Tobacco Use Status: Current everyday Tobacco user Tobacco use type: Cigarette Cigarettes Per Day: 7 e-Cigarette/Vaping Use: Never Used Second Hand Smoke Exposure: No Current occupational status: disabled Cognitive needs: Yes Hearing needs: No Vision needs: Yes Questionnaire PHQ-9 Over the last 2 weeks, how often have you been bothered by any of the following problems? 1. Little interest or pleasure in doing things: more than half the days 2. Feeling down, depressed, or hopeless: several days 3. Trouble falling or staying asleep, or sleeping too much: more than half the days 4. Feeling tired or having little energy: several days 5. Poor appetite or overeating: several days 6. Feeling bad about yourself - or that you are a failure or have let yourself or your family down: several days 7. Trouble concentrating on things, such as reading the newspaper or watching television: not at all 8. Moving or speaking so slowly that other people could have noticed. Or the opposite - being so fidgety or restless that you have been moving around a lot more than usual: not at all 9. Thoughts that you would be better off or of hurting yourself in some way: not at all Total score: 8 Source: Developed by Drs. Ky Reddy, Aysha Blue, Amrit Butcher and colleagues, with an educational vika from [employer]. Thrive Questionnaire Date Thrive assessed: 04/17/23 I am a: Parent/Caregiver What is your living situation today?: I have a steady place to live Within the past 12 months, did the food you bought not last and you didn't have the money to get more?: Never true Within the past 12 months, did you worry whether your food would run out before you got money to buy more?: Never true Do you have trouble paying for medicines?: No Do you have trouble getting transportation to medical appointments?: No Do you have trouble paying your heating and electricity bill?: No Do you have trouble taking care of your child, family member or friend?: No Do you have trouble with day-to-day activities such as bathing, preparing meals, shopping, managing finances, etc.?: No Are you currently unemployed and looking for a job?: No Are you interested in more education?: No Currently or been in a relationship where the following occur: no concerns reported THRIVE Score: 0 AUDIT C Alcohol Use Questionnaire (AUDIT-C) 1. How often do you have a drink containing alcohol?: Never Total Score: 0 Score Reviewed/Action Taken: No MARY-7 AMB Questionnaire MARY-7 Date MARY - 7 assessed: 04/17/23 Feeling nervous, anxious, or on edge: 1 = Several days Not being able to stop or control worryin = Several days Worrying too much about different things: 1 = Several days Trouble relaxin = Not at all Being so restless that it is hard to sit still: 0 = Not at all Becoming easily annoyed or irritable: 0 = Not at all Feeling afraid as if something awful might happen: 0 = Not at all Total MARY-7 score (0-4 normal; 5-9 mild; 10-14 moderate; 15-21 severe): 3 Source: Developed by Drs. Ky Reddy, Aysha Blue, Amrit Butcher and colleagues, with an educational vika from [employer]. Physical exam (Primary Care) Vital Signs: Last Vital Signs Pulse 65 04/17/23 09:36 BP 140/68 H 04/17/23 09:36 Pulse Ox 98 04/17/23 09:36 Oxygen Delivery Method Room Air 04/17/23 09:36 BMI result Body Mass Index 20.6 Tobacco/Smoking Status: Tobacco use Status Tobacco use date assessed 04/17/23 04/17/23 09:42 Patient Tobacco Use Status Current everyday Tobacco 04/17/23 09:42 Tobacco use type Cigarette 04/17/23 09:42 e-Cigarette/Vaping Use Never Used 04/17/23 09:42 PHQ-9: PHQ-9 Score PHQ-9: Total score 8 04/17/23 09:42 Thrive Assessment: Date of Thrive Assessment Date Thrive assessed 04/17/23 04/17/23 09:42 Currently or been in a relationship where the following occur: no concerns reported Const General: alert; No acute distress Eyes Conjunctivae: conjunctivae normal Resp Auscultation: clear to auscultation bilaterally Cardio Rate: regular rate Rhythm: regular rhythm GI Inspection: Yes normal to inspection Extrem General: Yes normal to inspection and No edema Assessment and Plan Assessment & Plan (1) Tobacco abuse: Code(s): Z72.0 - Tobacco use Plan: Patient has been strongly advised to stop smoking (2) Emphysema lung: Comment: cxr 08/2021 Code(s): J43.9 - Emphysema, unspecified Plan: Patient has been strongly advised to stop smoking!. Patient does not require any inhaler presently (3) Hypertension: Code(s): I10 - Essential (primary) hypertension Qualifiers: Hypertension type: essential hypertension Qualified Code(s): I10 - Essential (primary) hypertension Plan: Continue with blood pressure medication. Decrease salt intake and exercise presently on metoprolol 100 mg once a day hydrochlorothiazide 25 mg once a day still continues to be elevated with the blood pressure and so advised to add a medication for blood pressure lisinopril 5 mg once a day (4) GERD (gastroesophageal reflux disease): Code(s): K21.9 - Gastro-esophageal reflux disease without esophagitis Qualifiers: Esophagitis presence: without esophagitis Qualified Code(s): K21.9 - Gastro-esophageal reflux disease without esophagitis Plan: Avoid the foods that causes that usually spicy foods, tomato products, juices, coffee, soda and foods that your sensitive to. After eating do not lie down, allow 3-4 hours before in lie down. And keep the head of bed above 30 degrees to avoid the acid from going up. Patient advised to stop smoking (5) Hypercholesterolemia: Code(s): E78.00 - Pure hypercholesterolemia, unspecified Plan: Avoid fried foods, chicken skin, eggs, butter margarine, pastries and meat. Be it pork or beef they have a lot of cholesterol LDL goal of less than 130 and triglyceride of less than 150. Presently on simvastatin 10 mg once a day. Reminded about blood work (6) Dementia: Code(s): F03.90 - Unspecified dementia, unspecified severity, without behavioral disturbance, psychotic disturbance, mood disturbance, and anxiety Qualifiers: Dementia type: Alzheimer's Alzheimer's disease onset: late-onset Dementia behavioral disturbance: with behavioral disturbance Qualified Code(s): G30.1 - Alzheimer's disease with late onset; F02.81 - Dementia in other diseases classified elsewhere with behavioral disturbance Plan: Supportive treatment (7) Schizophrenia: Comment: [facility] therapy Code(s): F20.9 - Schizophrenia, unspecified Qualifiers: Schizophrenia type: disorganized schizophrenia Qualified Code(s): F20.1 - Disorganized schizophrenia Plan: Continue to follow-up with counseling and therapy (8) Multinodular thyroid: Comment: September 2022o significant change in 3.6 cm nodule in the mid to lower pole of the left lobe. TR 5. This fulfills the ACR criteria for FNA, if not already performed. Code(s): E04.2 - Nontoxic multinodular goiter Plan: Patient is reminded about endocrinology follow-up. 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
== END 2023-04-17 10:15 | disposition home or self-care (01) ==
PROVIDERS: PCP Internal Medicine; Visit Provider Internal Medicine
DX: J43.9 Emphysema, unspecified (principal); G30.1 Alzheimer's disease with late onset; F20.1 Disorganized schizophrenia; F02.818 Dementia in other diseases classified elsewhere, unspecified severity, with other behavioral disturbance; Z72.0 Tobacco use; I10 Essential (primary) hypertension; K21.9 Gastro-esophageal reflux disease without esophagitis; E78.00 Pure hypercholesterolemia, unspecified; E04.2 Nontoxic multinodular goiter
CPT/HCPCS: 99214

== ENCOUNTER 2023-05-14 23:27 | Emergency (ER) | payer MEDICARE, MEDICAID, SELFPAY ==
--- NOTE | ~2023-05-14 | CT_ITS ---
EXAMINATION: NONCONTRAST HEAD CT NONCONTRAST CERVICAL SPINE CT INDICATION INFORMATION: Drinking and fall 08/11/2022 COMPARISON: None TECHNIQUE: Separate noncontrast CT examinations of the head and cervical spine were performed. Coronal head CT images and coronal and sagittal cervical spine images were created at the technologist workstation. DLP: 831 mGy-cm DOSE LOWERING TECHNIQUES: This CT examination was performed using dose optimization techniques as appropriate, variously including the following: - Automated exposure control - Adjustment of mA and/or kV according to patient size (this includes techniques or standardized protocols for targeted exams were dose is matched to indication/reason for exam; i.e. extremities or head) - Use of iterative reconstruction technique FINDINGS: Head: There is no evidence of acute intracranial hemorrhage or territorial infarction. No abnormal mass-effect or midline shift is seen. Gonzalez to white matter differentiation is well preserved. No extra-axial fluid collections are identified. The ventricles are normal in size. There is moderate periventricular white matter hypoattenuation consistent with chronic small vessel ischemic disease. Mild volume loss is noted. There is right frontotemporal scalp soft tissue swelling. No acute fracture is seen. The mastoid air cells are well-aerated. Mucous retention cyst in the left maxillary sinus. Mucosal thickening throughout the bilateral ethmoid air cells and sphenoid sinuses. Cervical spine: There is anatomic alignment of the vertebral bodies and posterior elements. Vertebral body heights are maintained. There is degenerative change at the atlantodens articulation. There is disc space narrowing and endplate osteophyte formation in the lower cervical spine. No evidence of acute fracture. No prevertebral soft tissue swelling. Visualized portions of the lung apices are unremarkable. There is a left thyroid nodule measuring up to approximately 1.7 cm with internal calcifications. CT/CT cervical spine wo IV con IMPRESSION: HEAD: No acute intracranial findings. Right frontotemporal scalp soft tissue swelling. CERVICAL SPINE: 1. No acute findings identified. Degenerative changes as noted above. 2. Left thyroid nodule measuring 1.7 cm. See report from thyroid ultrasound 09/28/2022 for further workup.
--- NOTE | ~2023-05-14 | XR_ITS ---
EXAMINATION: XR HAND/WRIST, RIGHT CLINICAL INFORMATION: Fall COMPARISON: None TECHNIQUE: PA, lateral, and oblique views of the right hand and wrist. FINDINGS: Osseous alignment appears anatomic. No acute fracture is seen. No significant focal soft tissue abnormality identified. XR/XR hand wrist RT IMPRESSION: No acute findings identified.
--- NOTE | ~2023-05-14 | XR_ITS ---
EXAMINATION: XR RIBS, RIGHT CLINICAL INFORMATION: Pain in the right rib cage following a fall COMPARISON: 09/28/2022 TECHNIQUE: PA chest and right rib cage 4 views FINDINGS: Lungs are clear. No consolidation, pneumothorax, or pleural effusion. The cardiomediastinal silhouette and pulmonary vasculature are normal. Osseous structures are unremarkable. Ribs are intact. No fractures are identified. XR/XR ribs RT min 3V w CXR1V IMPRESSION: Unremarkable examination.
--- NOTE | ~2023-05-14 | XR_ITS ---
EXAMINATION: XR KNEE, RIGHT CLINICAL INFORMATION: Fall COMPARISON: None available. TECHNIQUE: Four views of the right knee. FINDINGS: Osseous alignment is anatomic. Patellofemoral joint space narrowing is noted.. Mild tricompartmental osteophytosis is present. No acute fracture is seen. No significant joint effusion. Scattered vascular calcifications. XR/XR knee RT 4V IMPRESSION: No acute findings identified. Mild degenerative changes.
[2023-05-14 23:40] VITALS: BP 157/115; PULSE 60; PULSE 61; RESP 16; TEMP 36.6; O2SAT 98; BMI 24.2
[2023-05-15 00:35] LABS: Hematocrit 38.2 % (37.0-47.0); Hemoglobin 12.7 g/dl (12.0-16.0); Mean Corpuscular HGB Conc 33.2 g/dl (31.0-35.0); Mean Corpuscular Volume 90.1 fL (80.0-98.0); Mean Platelet Volume 10.4 fL (9.4-12.3); Platelet Count 163 X10*3/uL (160-400); Red Blood Count 4.24 X10*6/uL (4.20-5.50); Red Cell Distribution Width 13.2 % (11.0-16.0)
[2023-05-15 00:49] LABS: Appearance Urine Clear; Color Urine Yellow; Glucose Urine UA Negative (Negative); Leukocyte Esterase Urine Negative (Negative); Nitrite Urine Negative (Negative); PH 6.5 (5.0-9.0); Specific Gravity - Urine <= 1.005 (1.005-1.025); UMIC TRIGGER UACC YES; Urine Blood Trace (Negative); Urine Ketones Negative (Negative); Urine Protein Negative (Neg-Trace)
[2023-05-15 00:51] LABS: Anion Gap 11 (12-20)
[2023-05-15 00:56] LABS: Troponin-I High Sensitivity 15.5 ng/L (<3.5-17.0)
[2023-05-15 00:56] LABS: Amphetamine Screen Urine Not Detected (Not Detect); Barbiturates, Urine Not Detected (Not Detect); Benzodiazepines Screen Urine Not Detected (Not Detect); Cannabinoid Screen Urine Not Detected (Not Detect); Cocaine Screen Urine Not Detected (Not Detect); Fentanyl, urine Not Detected (Not Detect); Opiate Screen Urine Not Detected (Not Detect); Phencyclidine Screen Urine Not Detected (Not Detect)
[2023-05-15 00:59] LABS: Bacteria Urine None Seen (None Seen); Hyaline Casts Urine 0-2 /LPF (0-2); RBC Urine 0-2 /HPF (0-2); Squamous Epithelial Cell Urine 0-2 /HPF (0-2); WBC Urine 0-5 /HPF (0-5)
[2023-05-15 01:36] LABS: Alanine Aminotransferase 15 U/L (0-31); Albumin Level 4.1 g/dL (3.5-5.0); Alkaline Phosphatase 85 U/L (39-117); Aspartate Amino Transferase 32 U/L (5-31); Bilirubin Total 0.3 mg/dL (0.0-1.0); Blood Urea Nitrogen 17 mg/dL (9-16); Calcium 9.1 mg/dL (8.4-10.2); Carbon Dioxide 26 mmol/L (22-29); Chloride 100 mmol/L (96-108); Creatinine Clr Calc Pharmacy 45.9; Estimated Glomerular Filt Rate > 60; Ethanol 210 mg/dL; Glucose Random 101 mg/dL (60-115); Potassium 3.8 mmol/L (3.3-5.1); Sodium 135 mmol/L (135-145); Total Protein 7.2 g/dL (6.5-8.0)
--- NOTE | 2023-05-15 01:58 | ECG_ITS ---
Test Reason : ETOH/CHESTPAIN Blood Pressure : / mmHG Vent. Rate : 068 BPM Atrial Rate : 000 BPM P-R Int : 000 ms QRS Dur : 084 ms QT Int : 428 ms P-R-T Axes : 000 060 089 degrees QTc Int : 455 ms Artifact Normal sinus rhythm Nonspecific T wave abnormality Abnormal ECG When compared with ECG of 10-SEP-2022 04:25, Vent. rate has increased BY 24 BPM Nonspecific T wave abnormality now evident in Inferior leads Referred By: Todd Zuniga Electronically Signed By:Jonel Mccall
--- NOTE | 2023-05-15 02:02 | ED.GENADULT ---
HPI - General Adult General Chief complaint: ETOH/Substance Use Stated complaint: etoh Time Seen by Provider: 05/15/23 00:37 Source: patient Mode of arrival: ambulatory Limitations: no limitations History of Present Illness HPI narrative: 72 yold female with pmh of alcohol abuse presents to the ED for falling while drinking alcohol. patient admits to drinking alcohol. patient compalitns of headache, right hand pain, and right knee pain. Related Data Home Medications Medication Instructions Recorded Confirmed fluoxetine 20 mg capsule 20 mg PO DAILY 09/12/22 04/17/23 Previous Rx's Medication Instructions Recorded ondansetron 4 mg disintegrating 4 mg PO Q8H PRN nausea and 05/06/21 tablet vomiting 7 days #20 tabs diclofenac sodium 1 % topical gel 2 g topical QID PRN pain #100 grams 06/02/21 (Arthritis Pain (diclofenac)) metoprolol succinate 100 mg 100 mg PO DAILY #90 tabs 06/12/22 tablet,extended release 24 hr omeprazole 20 mg capsule,delayed 20 mg PO DAILY 30 days #90 caps 06/12/22 release docusate sodium 100 mg capsule 200 mg (2 x 100 mg) PO DAILY 90 07/17/22 (Stool Softener) days #180 caps cholecalciferol (vitamin D3) 25 25 mcg PO DAILY 30 days #90 tabs 12/09/22 mcg (1,000 unit) tablet (Vitamin D3) hydrochlorothiazide 25 mg tablet 25 mg PO DAILY 90 days #90 tabs 03/07/23 lisinopril 5 mg tablet 5 mg PO DAILY #30 tabs 04/17/23 meloxicam 15 mg tablet 15 mg PO DAILY #90 tabs 04/20/23 simvastatin 10 mg tablet 10 mg PO QPM #90 tabs 04/20/23 Allergies Allergy/AdvReac Type Severity Reaction Status Date / Time aspirin [ASA] Allergy Unknown UNKNOWN Verified 05/14/23 23:40 ibuprofen [From Motrin] Allergy Unknown Dizziness Verified 05/14/23 23:40 Penicillins Allergy Unknown UNKNOWN Verified 05/14/23 23:40 rivastigmine [From Exelon] Allergy Unknown Unknown Verified 05/14/23 23:40 Review of Systems Review of Systems: fall dirnking alcohol. headache, right hand pain, right knee pain Yes all other systems are reviewed and are negative PMFSH Past Medical History Medical History Benign hematuria Breast density Dementia GERD (gastroesophageal reflux disease) Hypercholesterolemia Hypertension Multinodular thyroid Nausea & vomiting Osteoarthritis, knee Renal calculi Schizophrenia Skin tag Thyroid nodule Tobacco abuse Trigger finger of all digits of left hand Vitamin D deficiency Surgical History History of breast biopsy History of carpal tunnel release Hx of biopsy Family History Family History (Updated 04/17/23 @ 09:37 by Joycelyn Lara [facility]) Father Myocardial infarction Mother Sarcoma Brother Kidney disease Brother H/O ETOH abuse Brother No problems noted. Social History Social History (Updated 09/12/22 @ 15:31 by Epifanio Traylor MD) Housing: Apartment Alcohol intake: current Alcohol intake frequency: holidays/special occasions only Patient Tobacco Use Status: Current everyday Tobacco user Tobacco use type: Cigarette Cigarettes Per Day: 7 e-Cigarette/Vaping Use: Never Used Second Hand Smoke Exposure: No Advance Directives: No Advance Directives Information Provided: No Current occupational status: disabled Cognitive needs: Yes Hearing needs: No Vision needs: Yes Physical Exam ED Vital Signs: Vital Signs - 24 hr 05/14/23 23:40 Temperature 97.9 F Pulse Rate 61 Respiratory Rate 16 Blood Pressure 157/115 H Pulse Oximetry 98 Oxygen Delivery Method Room Air BMI result Body Mass Index 24.2 Const General: cooperative, healthy appearing, comfortable, no acute distress, well developed, alert, awake and Physically active Orientation/consciousness: oriented to person, oriented to place, oriented to time and patient oriented x3 HENMT Other: Patient in cervical Color Head: Yes normal to inspection, Yes No palpable skull fracture present, Yes normocephalic and Yes atraumatic Head images: 1. hematoma Eyes General: appearance normal, both eyes and all related structures Neck Neck: Yes normal visual inspection, Yes full ROM, Yes no lymphadenopathy, Yes no meningeal signs, Yes trachea midline, Yes supple, No anterior neck swelling and No tender Chest Chest palpation & inspection: normal inspection of the chest and normal palpation of entire chest wall Resp Effort & Inspection: normal respiratory effort and able to speak in complete sentences Auscultation: clear to auscultation bilaterally Cardio Jugular venous distension: no JVD Heart sounds: S1 normal heart sound present and S2 normal heart sound present GI Inspection: Yes normal to inspection and No abdominal wall ecchymosis Palpation (GI): Soft to palpation, not firm, nontender, no guarding and not rigid General: No CVA tenderness and Yes no CVA tenderness Back/Spine/Pelvis Back: no CVA tenderness, No CVA tenderness and No back tenderness Skin General skin exam: no rashes or lesions noted and elasticity normal Neuro General: oriented to person, oriented to place, oriented to time, patient oriented x3, tone normal, moves all extremities, Normal light touch and pain sensation, no meningeal signs, no focal motor deficits, CN's II-XI intact bilaterally and normal sensation to monofilament Extrem General: Yes normal to inspection and Yes full ROM Hand/finger images: 1. Pain on palpation. Negative for deformity, crepitus, ecchymosis Knee images: 1. Tenderness on palpation. negative for ecchymosis/crepitus/erythema/deformity. Motor neuro/vascular exam intact Psych Appearance: grossly normal, well kempt and not disheveled Medications Administered Generic Name Dose Route Start Last Admin Trade Name Freq PRN Reason Stop Dose Admin Sodium Chloride 1,000 mls @ 999 mls/hr 05/15/23 01:58 05/15/23 02:10 Ns IV 05/15/23 02:58 999 mls/hr .Q1H1M STA Administration Discontinued Medications Generic Name Dose Route Start Last Admin Trade Name Freq PRN Reason Stop Dose Admin Acetaminophen 650 mg 05/15/23 00:51 05/15/23 02:10 Acetaminophen 325 Mg Tablet PO 05/15/23 00:52 650 mg ONCE ONE Administration Medical Decision Making Medical Decision Making MDM Narrative: 72-year-old female presents to ED for fall after drinking alcohol. Labs drawn. Alcohol level 210. Troponin was not indicated but nurse ordered so EKG was ordered. Patient is sent for imaging. Patient in C-collar. Patient given Tylenol for pain. Patient given fluids . 2:47am: Patient now states he is suicidal and does not want to leave. Care team consult placed. Suicidal with no plan. SIgned out to Dr. Mae Differential Diagnosis Differential Diagnoses: The differential diagnosis associated with the presentation includes (Alcohol abuse, suicidal, trauma from fall) Admission/Observation Consideration of admission/observation: Escalation of care including admission/observation considered Consult Healthcare Provider Management of the patient was discussed with: Nuclear Plant Technical Advisor (Care team) Lab Data [facility] Lab Attestation statement: I reviewed the patient's lab results. 05/15/23 00:30 05/15/23 00:30 Labs: Lab Results 05/15/23 05/15/23 05/15/23 Range/Units 00:30 00:31 00:42 WBC 7.0 (4.8-10.8) X10*3/uL RBC 4.24 (4.20-5.50) X10*6/uL Hgb 12.7 (12.0-16.0) g/dl Hct 38.2 (37.0-47.0) % MCV 90.1 (80.0-98.0) fL MCH 30.0 (27.0-33.0) pg MCHC 33.2 (31.0-35.0) g/dl RDW 13.2 (11.0-16.0) % Plt Count 163 (160-400) X10*3/uL MPV 10.4 (9.4-12.3) fL Absolute Nucleated RBC 0.000 (0.0-0.012) X10*3/uL Nucleated RBC % (auto) 0.0 (0.0-0.2) /100WBC Sodium 135 (135-145) mmol/L Potassium 3.8 (3.3-5.1) mmol/L Chloride 100 (96-108) mmol/L Carbon Dioxide 26 (22-29) mmol/L Anion Gap 11 L (12-20) BUN 17 H (9-16) mg/dL Creatinine 0.85 (0.5-1.4) mg/dL Estim Creat Clear Calc 45.9 Estimated GFR > 60 Random Glucose 101 (60-115) mg/dL Calcium 9.1 (8.4-10.2) mg/dL Total Bilirubin 0.3 (0.0-1.0) mg/dL AST 32 H (5-31) U/L ALT 15 (0-31) U/L Alkaline Phosphatase 85 (39-117) U/L Troponin I High Sens 15.5 (<3.5-17.0) ng/L Total Protein 7.2 (6.5-8.0) g/dL Albumin 4.1 (3.5-5.0) g/dL Urine Color Yellow Urine Appearance Clear Urine pH 6.5 (5.0-9.0) Ur Specific [place] <= 1.005 (1.005-1.025) Urine Protein Negative (Neg-Trace) mg/dL Urine Glucose (UA) Negative (Negative) mg/dL Urine Ketones Negative (Negative) mg/dL Urine Blood Trace H (Negative) Urine Nitrite Negative (Negative) Ur Leukocyte Esterase Negative (Negative) Urine RBC 0-2 (0-2) /HPF Urine WBC 0-5 (0-5) /HPF Ur Squamous Epith Cells 0-2 (0-2) /HPF Urine Bacteria None Seen (None Seen) Hyaline Casts 0-2 (0-2) /LPF Urine Opiates Screen Not Detected (Not Detect) Urine Fentanyl Screen Not Detected (Not Detect) Ur Barbiturates Screen Not Detected (Not Detect) Ur Phencyclidine Scrn Not Detected (Not Detect) Ur Amphetamines Screen Not Detected (Not Detect) U Benzodiazepines Scrn Not Detected (Not Detect) Urine Cocaine Screen Not Detected (Not Detect) U Marijuana (THC) Screen Not Detected (Not Detect) Ethyl Alcohol 210 mg/dL Independent Interpretation I performed an independent interpretation of an: EKG (Accelerated junctional rhythm), Plain X-Ray and CT Scan Radiology Impression Discussion of test interpretation with radiology: I have reviewed the radiologist's reading. Independent Historian Clinical information obtained from an independent historian. History obtained from or confirmed by: Other (Patient) External Record Review External record reviewed: Other (Prior visits) Social Determinants Patient?s care significantly limited by Social Determinants of Health including: Other Social Determinant of Health (Alcohol abuse) Discharge Plan Discharge Clinical Impression: Alcohol abuse Patient Disposition: Still a Patient Prescriptions: No Action ondansetron 4 mg tablet,disintegrating 4 mg PO Q8H PRN (Reason: nausea and vomiting) 7 Days Qty: 20 0RF metoprolol succinate 100 mg tablet extended release 24 hr 100 mg PO DAILY Qty: 90 2RF omeprazole 20 mg capsule,delayed release(DR/EC) 20 mg PO DAILY 30 Days Qty: 90 2RF docusate sodium [Stool Softener] 100 mg capsule 200 mg PO DAILY 90 Days Qty: 180 3RF cholecalciferol (vitamin D3) [Vitamin D3] 25 mcg (1,000 unit) tablet 25 mcg PO DAILY 30 Days Qty: 90 3RF hydrochlorothiazide 25 mg tablet 25 mg PO DAILY 90 Days Qty: 90 3RF simvastatin 10 mg tablet 10 mg PO QPM Qty: 90 2RF meloxicam 15 mg tablet 15 mg PO DAILY Qty: 90 1RF diclofenac sodium [Arthritis Pain (diclofenac)] 1 % gel 2 g topical QID PRN (Reason: pain) Qty: 100 0RF Rx Instructions: apply to single elbow, wrist or hand; for hand includes palm/fingers/back of hand fluoxetine 20 mg capsule 20 mg PO DAILY lisinopril 5 mg tablet 5 mg PO DAILY Qty: 30 4RF
[2023-05-15] MEDS: Acetaminophen 325 MG TABLET 650 MG PO (02:10)
[2023-05-15] MEDS: 0.9 % Sodium Chloride 1,000 ML 999 ML IV (02:10)
[2023-05-15 03:13] LABS: Troponin-I High Sensitivity 14.3 ng/L (<3.5-17.0)
[2023-05-15 06:33] VITALS: BP 139/94; PULSE 69; RESP 16; TEMP 36.7; O2SAT 98
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
--- NOTE | 2023-05-15 07:24 | ECG_ITS ---
Test Reason : etoh Blood Pressure : / mmHG Vent. Rate : 065 BPM Atrial Rate : 065 BPM P-R Int : 100 ms QRS Dur : 082 ms QT Int : 442 ms P-R-T Axes : 074 057 073 degrees QTc Int : 459 ms Sinus rhythm with short GA Nonspecific T wave abnormality Abnormal ECG When compared with ECG of 15-MAY-2023 02:27, No significant changes seen Referred By: Lewis Mae Electronically Signed By:Jonel Mccall
--- NOTE | 2023-05-15 09:07 | MHC.EDTECH ---
AM care done , change of bed lined .
--- NOTE | 2023-05-15 10:40 | MHC.CARE ---
Patient evaluated by the CARE Team, she does not require an inpatient hospitalization and will discharge with her daughter. ED provider, Dr. Oneill update and in agreement with plan.
== END 2023-05-15 12:14 | disposition home or self-care (01) ==
PROVIDERS: Physician Assistant; Emergency Provider Emergency Medicine
DX: S20.219A Contusion of unspecified front wall of thorax, initial encounter (principal); F10.129 Alcohol abuse with intoxication, unspecified; Y90.7 Blood alcohol level of 200-239 mg/100 ml; R51.9 Headache, unspecified; M79.641 Pain in right hand; M25.561 Pain in right knee; R07.89 Other chest pain; R06.02 Shortness of breath; M54.2 Cervicalgia; R07.81 Pleurodynia; W01.10XA Fall on same level from slipping, tripping and stumbling with subsequent striking against unspecified object, initial encounter; Y93.9 Activity, unspecified; Y92.9 Unspecified place or not applicable; Y99.8 Other external cause status; Z79.899 Other long term (current) drug therapy
CPT/HCPCS: 36415; 70450; 71101; 72125; 73110; 73130; 73564; 80053; 80307; 81001; 84484; 85027; 93005; 96360; 96361; 99285; S9485

== ENCOUNTER → 2023-05-15 01:58 | Outpatient (BNV) | payer MEDICARE, MEDICAID, SELFPAY | PROVIDERS: Emergency Provider Emergency Medicine; Visit Provider Internal Medicine Cardiovascular Disease | DX: R94.31 Abnormal electrocardiogram [ECG] [EKG] (principal) | CPT/HCPCS: 93010 ==

== ENCOUNTER 2023-06-16 10:56 | Outpatient (AMB) | payer MEDICARE, MEDICAID, SELFPAY ==
[2023-06-16 10:59] VITALS: BP 118/66; PULSE 85; O2SAT 98; BMI 21.6
--- NOTE | 2023-06-16 10:59 | MHC.PC.OV ---
Vital Signs 06/16/23 10:59 Height 5 ft 2 in Weight 118 lb 0.6 oz BMI 21.6 BP 118/66 Blood Pressure Location Lt brachial Position Sitting Pulse 85 Pulse Source Pulse Oximeter Pulse Oximetry (%) 98 Oxygen Delivery Method Room Air Intake Visit Reasons: HTN, cholesterol , goiter Swaging Machine Adjuster Required: No Allergies aspirin [ASA] Allergy (Unknown, Verified 06/16/23 11:03) UNKNOWN ibuprofen [From Motrin] Allergy (Unknown, Verified 06/16/23 11:03) Dizziness Penicillins Allergy (Unknown, Verified 06/16/23 11:03) UNKNOWN rivastigmine [From Exelon] Allergy (Unknown, Verified 06/16/23 11:03) Unknown Tobacco use date assessed: 06/16/23 Fall risk assessment: No Falls in past year Last assessed Fall Risk: 06/16/23 Dental Screening Dental Screen Date: 04/17/23 HPI HTN, cholesterol , goiter HPI Details 73-year-old female smoker with COPD hypertension GERD hypercholesterolemia dementia schizophrenia coming in for follow-up. Last seen in April 2023. Mammogram is up-to-date. Review of the notes ER visit in May for 2023 for fall due to alcohol abuse hematoma on the left forehead having pain on the right hand and right knee diagnosis of alcohol abuse. reminded about blood workn PENDING SALE TO [facility] Medical History Benign hematuria Breast density Dementia GERD (gastroesophageal reflux disease) Hypercholesterolemia Hypertension Multinodular thyroid Nausea & vomiting Osteoarthritis, knee Renal calculi Schizophrenia Skin tag Thyroid nodule Tobacco abuse Trigger finger of all digits of left hand Vitamin D deficiency Surgical History History of breast biopsy History of carpal tunnel release Hx of biopsy Family History (Updated 04/17/23 @ 09:37 by Joycelyn Lara CMA) Father Myocardial infarction Mother Sarcoma Brother Kidney disease Brother H/O ETOH abuse Brother No problems noted. Social History (Updated 09/12/22 @ 15:31 by Epifanio Traylor MD) Housing: Apartment Alcohol intake: current Alcohol intake frequency: holidays/special occasions only Alcohol type: beer and hard liquor Patient Tobacco Use Status: Current everyday Tobacco user Tobacco use type: Cigarette Cigarettes Per Day: 7 e-Cigarette/Vaping Use: Never Used Second Hand Smoke Exposure: No Current occupational status: disabled Cognitive needs: Yes Hearing needs: No Vision needs: Yes Questionnaire Thrive Questionnaire Date Thrive assessed: 04/17/23 AUDIT C Alcohol Use Questionnaire (AUDIT-C) 1. How often do you have a drink containing alcohol?: Never 3. How often do you have six or more drinks on one occasion?: Never Total Score: 0 Score Reviewed/Action Taken: No MARY-7 AMB Questionnaire MARY-7 Date MARY - 7 assessed: 04/17/23 Source: Developed by Drs. Ky Reddy, Aysha Blue, Amrit Butcher and colleagues, with an educational vika from [employer]. Physical exam (Primary Care) Vital Signs: Last Vital Signs Pulse 85 06/16/23 10:59 BP 118/66 06/16/23 10:59 Pulse Ox 98 06/16/23 10:59 Oxygen Delivery Method Room Air 06/16/23 10:59 BMI result Body Mass Index 21.6 Tobacco/Smoking Status: Tobacco use Status Tobacco use date assessed 06/16/23 06/16/23 11:01 Patient Tobacco Use Status Current everyday Tobacco 06/16/23 11:01 Tobacco use type Cigarette 06/16/23 11:01 e-Cigarette/Vaping Use Never Used 06/16/23 11:01 Thrive Assessment: Date of Thrive Assessment Date Thrive assessed 04/17/23 06/16/23 11:01 Const General: alert; No acute distress Eyes Conjunctivae: conjunctivae normal Resp Auscultation: clear to auscultation bilaterally Cardio Rate: regular rate Rhythm: regular rhythm GI Inspection: Yes normal to inspection Extrem General: Yes normal to inspection and No edema Assessment and Plan Assessment & Plan (1) Alcohol abuse: Code(s): F10.10 - Alcohol abuse, uncomplicated Plan: Patient is strongly advised to abstain (2) Tobacco abuse: Code(s): Z72.0 - Tobacco use Plan: Patient is strongly advised to stop smoking! (3) Hypertension: Code(s): I10 - Essential (primary) hypertension Qualifiers: Hypertension type: essential hypertension Qualified Code(s): I10 - Essential (primary) hypertension Plan: Continue with blood pressure medication. Decrease salt intake and exercise presently on lisinopril 5 mg once a day metoprolol 100 mg once a day (4) GERD (gastroesophageal reflux disease): Code(s): K21.9 - Gastro-esophageal reflux disease without esophagitis Qualifiers: Esophagitis presence: without esophagitis Qualified Code(s): K21.9 - Gastro-esophageal reflux disease without esophagitis Plan: Avoid the foods that causes that usually spicy foods, tomato products, juices, coffee, soda and foods that your sensitive to. After eating do not lie down, allow 3-4 hours before in lie down. And keep the head of bed above 30 degrees to avoid the acid from going up. (5) Dementia: Code(s): F03.90 - Unspecified dementia, unspecified severity, without behavioral disturbance, psychotic disturbance, mood disturbance, and anxiety Qualifiers: Dementia type: Alzheimer's Alzheimer's disease onset: late-onset Dementia behavioral disturbance: with behavioral disturbance Qualified Code(s): G30.1 - Alzheimer's disease with late onset; F02.81 - Dementia in other diseases classified elsewhere with behavioral disturbance Plan: Supportive treatment (6) Hypercholesterolemia: Code(s): E78.00 - Pure hypercholesterolemia, unspecified Plan: Avoid fried foods, chicken skin, eggs, butter margarine, pastries and meat. 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
== END 2023-06-16 11:24 | disposition home or self-care (01) ==
PROVIDERS: PCP Internal Medicine; Visit Provider Internal Medicine
DX: F10.10 Alcohol abuse, uncomplicated (principal); Z72.0 Tobacco use; I10 Essential (primary) hypertension; K21.9 Gastro-esophageal reflux disease without esophagitis; G30.1 Alzheimer's disease with late onset; F02.818 Dementia in other diseases classified elsewhere, unspecified severity, with other behavioral disturbance; E78.00 Pure hypercholesterolemia, unspecified
CPT/HCPCS: 99214

== ENCOUNTER 2023-07-12 11:31 | Outpatient (REF) | payer MEDICARE, MEDICAID, SELFPAY ==
--- NOTE | ~2023-07-12 | MM_ITS ---
EXAMINATION: BONE DENSITOMETRY CLINICAL INDICATION: Age-related osteoporosis without current pathological fracture. COMPARISON: Previous BD dated 09/08/2015 and baseline BD dated 02/07/2006. TECHNIQUE: Using a [employer] DXA System (software version: 13.1) manufactured by [employer], dual-energy x-ray absorptiometry was performed of the lumbar spine and left hip. The images are of good technical quality. Summary results are attached. FINDINGS: LEFT FEMUR, NECK: Current: BMD 0.832 g/cm2, Z-score 0.6, T-score -1.5, osteopenia. Prior: BMD 0.915 g/cm2. Baseline: BMD 0.955 g/cm2. LEFT FEMUR, TOTAL: Current: BMD 0.844 g/cm2, Z-score 0.6, T-score -1.3, osteopenia, 11.1% decrease from previous, 18.4% decrease from baseline (<5% change is not significant). Prior: BMD 0.949 g/cm2. Baseline: BMD 1.034 g/cm2. AP SPINE L1-L4: Current: BMD 1.183 g/cm2, Z-score 2.0, T-score 0.0, normal, 0.7% decrease from previous, 3.1% increase from baseline (<5% change is not significant). Prior: BMD 1.191 g/cm2. Baseline: BMD 1.147 g/cm2. IDENTIFIED RISK FACTORS: Menopause, tobacco use (current smoker). HISTORY OF FRACTURE: None listed. MEDICATIONS: Calcium, vitamin D. MM/XR DEXA axial skeleton IMPRESSION: 1. DIAGNOSIS: Osteopenia based on the lowest T-score value of -1.5 in the femoral neck applying World Health Organization criteria. 2. 10-YEAR FRACTURE RISK PREDICTION, FRAX: Major osteoporotic fracture (clinical spine, forearm, hip or shoulder) 6.3%. Hip fracture 2.0%. 3. Treatment Recommendations: NOF guidelines recommend consideration for treatment in postmenopausal women and men age 50 and older presenting with the following: -A hip or vertebral (clinical or morphometric) fracture. -T-score less than or equal to -2.5 at the femoral neck or spine after appropriate evaluation to exclude secondary causes. -Low bone mass at the hip or spine and a 10-year fracture probability by FRAX of greater than or equal to 3% for hip fracture or greater than or equal to 20% for major osteoporotic fracture based on the [place] adapted WHO algorithm. 4. Other Recommendations: All treatment decisions require clinical judgment and consideration of individual patient factors, including patient preferences, comorbidities, previous drug use, risk factors not captured in the FRAX model (e.g. frailty, falls, vitamin D deficiency, increased bone turnover, interval significant decline in bone density) and possible under or overestimation of fracture risk by FRAX. Additional medical evaluation for secondary cause of low bone mineral density may be appropriate. FUTURE SCAN RECOMMENDATION: People with diagnosed cases of osteoporosis or at high risk for fracture should have regular bone mineral density tests. For patients eligible for Medicare, routine testing is allowed once every 2 years. The testing frequency can be increased to one year for patients who have rapidly progressing disease, those who are receiving or discontinuing medical therapy to restore bone mass, or have additional risk factors.
== END 2023-07-12 11:32 | disposition home or self-care (01) ==
LOC: HO.MAMMO 11:31
PROVIDERS: Visit Provider Internal Medicine
DX: Z13.820 Encounter for screening for osteoporosis (principal); Z78.0 Asymptomatic menopausal state; M81.0 Age-related osteoporosis without current pathological fracture
CPT/HCPCS: 77080

== ENCOUNTER 2023-09-20 10:09 | Outpatient (AMB) | payer MEDICARE, MEDICAID, SELFPAY ==
[2023-09-20 10:35] VITALS: BP 132/70; PULSE 57; O2SAT 98; BMI 21.6
--- NOTE | 2023-09-20 10:35 | AM.OFFVISMDC ---
Intake Vital Signs 09/20/23 10:35 Height 5 ft 2 in Weight 118 lb BMI 21.6 BP 132/70 Blood Pressure Location Lt brachial Position Sitting Pulse 57 Pulse Source Pulse Oximeter Pulse Oximetry (%) 98 Oxygen Delivery Method Room Air Intake Visit Reasons: [facility] G0439 Clothing Pattern Preparer: Clothing Pattern Preparer Present Accompanied by: Daughter Allergies aspirin [ASA] Allergy (Unknown, Verified 09/20/23 10:40) UNKNOWN ibuprofen [From Motrin] Allergy (Unknown, Verified 09/20/23 10:40) Dizziness Penicillins Allergy (Unknown, Verified 09/20/23 10:40) UNKNOWN rivastigmine [From Exelon] Allergy (Unknown, Verified 09/20/23 10:40) Unknown Medication List - Last Reconciled 09/20/23 by Epifanio Traylor MD cholecalciferol (vitamin D3) (Vitamin D3) 25 mcg PO DAILY 30 days diclofenac sodium 1% (Arthritis Pain (diclofenac)) 2 grams topical QID PRN docusate sodium (Stool Softener) 200 mg (2 x 100 mg) PO DAILY 90 days fluoxetine 20 mg PO DAILY hydrochlorothiazide 25 mg PO DAILY 90 days lisinopril 5 mg PO DAILY meloxicam 15 mg PO DAILY metoprolol succinate ER 100 mg PO DAILY omeprazole 20 mg PO DAILY 30 days ondansetron 4 mg PO Q8H PRN 7 days simvastatin 10 mg PO QPM HPI [facility] G0439 HPI Details 73-year-old female with a history of dementia, alcohol and tobacco abuse hypertension GERD hypercholesterolemia coming in for an annual well visit last seen in June 2023. Patient's mammogram is up-to-date bone density is up-to-date and no more colonoscopies. [facility] Medical History Benign hematuria Breast density Dementia GERD (gastroesophageal reflux disease) Hypercholesterolemia Hypertension Multinodular thyroid Nausea & vomiting Osteoarthritis, knee Renal calculi Schizophrenia Skin tag Thyroid nodule Tobacco abuse Trigger finger of all digits of left hand Vitamin D deficiency Surgical History History of breast biopsy History of carpal tunnel release Hx of biopsy Family History (Updated 04/17/23 @ 09:37 by Joycelyn Lara CMA) Father Myocardial infarction Mother Sarcoma Brother Kidney disease Brother H/O ETOH abuse Brother No problems noted. Social History (Updated 09/20/23 @ 11:09 by Epifanio Traylor MD) Housing: Apartment Alcohol intake: former Comment: stopped 2023 Patient Tobacco Use Status: Current everyday Tobacco user Tobacco use type: Cigarette Cigarettes Per Day: 7 e-Cigarette/Vaping Use: Never Used Second Hand Smoke Exposure: No Current occupational status: disabled Cognitive needs: Yes Hearing needs: No Vision needs: Yes Questionnaire Medicare Wellness Checkup [age] What gender do you identify with?: female During the past 4 weeks, how much have you been bothered by emotional problems such as feeling anxious, depressed, irritable, sad or downhearted, and blue?: moderately During the past 4 weeks, has your physical & emotional health limited your social activities with family, friends, neighbors, or groups?: slightly During the past 4 weeks, was someone available to help you if you needed & wanted help?: yes, as much as I wanted During the past 4 weeks, what was the hardest physical activity you could do for at least 2 minutes?: moderate Can you get to places out of walking distance without help? (For eg., can you travel alone on buses, taxis or drive your car?): Yes Can you go shopping for groceries or clothes without someone's help?: No Can you prepare your own meals?: No Can you do your housework without help?: No Because of any health problems, do you need the help of another person with your personal care needs such as eating, bathing, dressing or getting around the house?: Yes Can you handle your own money without help?: Yes During the past 4 weeks, how would you rate your health in general?: very good During the past 4 weeks how have things been going for you?: pretty well Are you having difficulties driving your car?: not applicable, I don't use a car Do you always fasten your seat belt when you are in a car?: yes, usually During past 4 weeks, have you been bothered by the following: never: Sexual problems?, Teeth or denture problems? and Problems using the telephone? and sometimes: Falling or dizzy when standing up, Trouble eating well? and Tiredness or fatigue? Have you fallen 2 or more times in the past year?: No Are you afraid of falling?: Yes Are you a smoker?: yes, and I might quit During the past 4 weeks, how many drinks of wine, beer, or other alcoholic beverages did you have?: no alcohol at all Do you exercise for about 20 minutes 3 or more times a week?: no, I usually do not exercise this much Have you been given information to help with the following?: yes: Keeping track of your medications? and no: Hazards in your house that might hurt you? How often do you have trouble taking medicines the way you have been told to take them?: I always take medicine as prescribed How confident are you that you can control & manage most of your health problems?: somewhat confident What is your race?: or origin or descent PHQ-9 Over the last 2 weeks, how often have you been bothered by any of the following problems? 1. Little interest or pleasure in doing things: several days 2. Feeling down, depressed, or hopeless: more than half the days 3. Trouble falling or staying asleep, or sleeping too much: more than half the days 4. Feeling tired or having little energy: several days 5. Poor appetite or overeating: several days 6. Feeling bad about yourself - or that you are a failure or have let yourself or your family down: several days 7. Trouble concentrating on things, such as reading the newspaper or watching television: not at all 8. Moving or speaking so slowly that other people could have noticed. Or the opposite - being so fidgety or restless that you have been moving around a lot more than usual: not at all 9. Thoughts that you would be better off or of hurting yourself in some way: not at all Total score: 8 Source: Developed by Drs. Ky Reddy, Aysha Blue, Amrit Butcher and colleagues, with an educational vika from [employer]. Review of Systems Const Denies poor appetite and Denies weakness Eyes Denies no additional complaints ENT Reports Normal hearing present, Denies dizziness, Denies nasal congestion, Denies tinnitus and Denies sore throat Card Denies chest pain, Denies syncope, Denies rapid heart rate and Denies dyspnea Resp Denies cough and Denies dyspnea GI Denies change in stool character, Reports constipation, Denies diarrhea, Denies nausea and Denies vomiting Denies urinary frequency, Denies difficulty voiding and Denies dysuria Neuro Reports Normal hearing present, Denies confusion, Denies dizziness, Denies syncope and Denies weakness Psych Denies confusion Physical Exam Vital Signs: Last Vital Signs Pulse 57 09/20/23 10:35 BP 132/70 09/20/23 10:35 Pulse Ox 98 09/20/23 10:35 Oxygen Delivery Method Room Air 09/20/23 10:35 BMI result Body Mass Index 21.6 Const General: No confusion Orientation/consciousness: No confusion HEENT Head: Yes normocephalic Ears: external ears normal and TM's normal bilaterally Face and sinus: Yes normal facial exam Mouth: moist mucous membranes Throat: Yes tonsils normal Eyes Conjunctivae: conjunctivae normal Pupils: Equal, round and reactive pupils present and Pupil accommodation reflex normal Direct Ophthalmoscopy: normal light reflex Neck Neck: No lymphadenopathy Thyroid: Thyroid normal Chest Chest palpation & inspection: normal inspection of the chest Resp Effort & Inspection: normal respiratory effort and no audible wheezes Auscultation: clear to auscultation bilaterally, no crackles, no wheezes and lung sounds not diminished Cardio Rate: regular rate Rhythm: regular rhythm Peripheral pulses: radial pulses present and dorsalis pedis present GI Other: no hemorrhoids noted but guaiac positive stools Palpation (GI): no masses Auscultation: normal bowel sounds and normoactive bowel sounds Skin General skin exam: no rashes or lesions noted Rashes: no rashes Neuro General: No confusion Cranial nerves: Yes Equal, round and reactive pupils present and Yes Normal hearing present Cognition (Neuro): normal cognition Gait exam (Neuro): Normal gait present Motor exam (neuro): 5/5 motor strength present throughout Deep tendon reflexes (DTR's): Right brachioradialis reflex intensity grade: 2+, Left brachioradialis reflex intensity grade: 2+, Right patellar reflex intensity grade: 2+ and Left patellar reflex intensity grade: 2+ Extrem General: No edema Assessment & Plan Assessment & Plan (1) Medicare annual wellness visit, subsequent: Code(s): Z00.00 - Encounter for general adult medical examination without abnormal findings Plan: Patient is advised to eat healthy, keep well hydrated, keep active and have adequate sleep. (2) Multinodular thyroid: Comment: September 2022o significant change in 3.6 cm nodule in the mid to lower pole of the left lobe. TR 5. This fulfills the ACR criteria for FNA, if not already performed. Code(s): E04.2 - Nontoxic multinodular goiter Plan: Continue to follow-up with endocrinology (3) Emphysema lung: Comment: cxr 08/2021 Code(s): J43.9 - Emphysema, unspecified Qualifiers: Emphysema type: panlobular Qualified Code(s): J43.1 - Panlobular emphysema Plan: Stable and advised to stop smoking (4) Sch[facility]ia: [facility] Code(s): F20.9 - Schizophrenia, unspecified Qualifiers: Schizophrenia type: disorganized schizophrenia Qualified Code(s): F20.1 - Disorganized schizophrenia Plan: Continue with counseling and therapy on fluoxetine 20 mg once a day (5) Tobacco abuse: Code(s): Z72.0 - Tobacco use Plan: Patient is strongly advised to stop! (6) Hypercholesterolemia: Code(s): E78.00 - Pure hypercholesterolemia, unspecified Plan: Avoid fried foods, chicken skin, eggs, butter margarine, pastries and meat. Be it pork or beef they have a lot of cholesterol LDL goal of less than 130 and triglyceride of less than 150 on simvastatin 10 mg at bedtime in the last blood work was done 05/31/2023 (7) Dementia: Code(s): F03.90 - Unspecified dementia, unspecified severity, without behavioral disturbance, psychotic disturbance, mood disturbance, and anxiety Qualifiers: Alzheimer's disease onset: late-onset Dementia behavioral disturbance: with behavioral disturbance Dementia type: Alzheimer's Qualified Code(s): G30.1 - Alzheimer's disease with late onset; F02.81 - Dementia in other diseases classified elsewhere with behavioral disturbance Plan: Supportive management (8) Hypertension: Code(s): I10 - Essential (primary) hypertension Qualifiers: Hypertension type: essential hypertension Qualified Code(s): I10 - Essential (primary) hypertension Plan: Continue with blood pressure medication. Decrease salt intake and exercise patient takes hydrochlorothiazide 25 mg once a day lisinopril 5 mg once a day and metoprolol 100 mg once a day (9) Guaiac positive stools: Code(s): R19.5 - Other fecal abnormalities Plan: Discussed about the problem of having blood in the stools. Option of preventing constipation by giving stool softeners and hemorrhoid cream. Patient was advised to follow-up in about 6 weeks' time to retest the stools for positivity. If guaiac positive still will need referral to Gastroenterology. (10) Constipation: Code(s): K59.00 - Constipation, unspecified Qualifiers: Constipation type: unspecified constipation type Qualified Code(s): K59.00 - Constipation, unspecified Plan: Three rules for constipation 1. Diet need to have a high fiber diet less of meat 2. Increase oral fluids 3. Exercise patient is prescribed senna plus Colace. Medications: New fluoxetine 20 mg PO DAILY 90 caps 1RF sennosides-docusate sodium 8.6-50 mg (Senna with Docusate Sodium) stop when diarrhea 2 tab-caps (2 x 8.6-50 mg) PO BEDTIME 60 tabs 3RF K59.00 - Constipation, unspecified hydrocortisone 2.5% (Proctosol HC) 1 appl DC BID-QID PRN 30 grams 1RF hemorrhoids R19.5 - Other fecal abnormalities Discontinued hydrochlorothiazide Discontinued Reason: Doctor's Order 25 mg PO DAILY 90 days 90 tabs 3RF docusate sodium (Stool Softener) Discontinued Reason: Doctor's Order 200 mg (2 x 100 mg) PO DAILY 90 days 180 caps 3RF Quality Reporting (2019) Depression/Bipolar (159/160/161/177) PHQ-9: Total score: 8 Coding Level of Care Code Medicare Subsequent (G0439) Diagnoses Medicare annual wellness visit, subsequent Z00.00 Multinodular thyroid E04.2 Panlobular emphysema J43.1 Emphysema type: panlobular 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
== END 2023-09-20 11:37 | disposition home or self-care (01) ==
PROVIDERS: PCP Internal Medicine; Visit Provider Internal Medicine
DX: Z00.00 Encounter for general adult medical examination without abnormal findings (principal); J43.1 Panlobular emphysema; G30.1 Alzheimer's disease with late onset; F02.818 Dementia in other diseases classified elsewhere, unspecified severity, with other behavioral disturbance; E04.2 Nontoxic multinodular goiter; E78.00 Pure hypercholesterolemia, unspecified; Z72.0 Tobacco use; I10 Essential (primary) hypertension; R19.5 Other fecal abnormalities; K59.00 Constipation, unspecified
CPT/HCPCS: G0439

== ENCOUNTER 2023-11-02 09:51 | Outpatient (AMB) | payer MEDICARE, MEDICAID, SELFPAY ==
[2023-11-02 09:54] VITALS: BP 134/76; PULSE 74; O2SAT 97; BMI 21.4
--- NOTE | 2023-11-02 09:54 | MHC.PC.OV ---
Vital Signs 11/02/23 09:54 Height 5 ft 2 in Weight 117 lb BMI 21.4 BP 134/76 Blood Pressure Location Lt brachial Position Sitting Pulse 74 Pulse Source Pulse Oximeter Pulse Oximetry (%) 97 Oxygen Delivery Method Room Air Intake Visit Reasons: guaiac positive stools HTN , CHolesterol Allergies aspirin [ASA] Allergy (Unknown, Verified 11/02/23 09:55) UNKNOWN ibuprofen [From Motrin] Allergy (Unknown, Verified 11/02/23 09:55) Dizziness Penicillins Allergy (Unknown, Verified 11/02/23 09:55) UNKNOWN rivastigmine [From Exelon] Allergy (Unknown, Verified 11/02/23 09:55) Unknown Tobacco use date assessed: 06/16/23 Fall risk assessment: No Falls in past year Last assessed Fall Risk: 11/02/23 Dental Screening Dental Screen Date: 04/17/23 HPI guaiac positive stools HTN , CHolesterol HPI Details 73-year-old female smoker with COPD schizophrenia multinodular thyroid hypercholesterolemia dementia hypertension last seen for annual wellness noted to have guaiac-positive stools. Patient was given medications to help with hemorrhoids and was advised to follow-up to check for stool. [facility] Medical History Benign hematuria Breast density Dementia GERD (gastroesophageal reflux disease) Hypercholesterolemia Hypertension Multinodular thyroid Nausea & vomiting Osteoarthritis, knee Renal calculi Schizophrenia Skin tag Thyroid nodule Tobacco abuse Trigger finger of all digits of left hand Vitamin D deficiency Surgical History History of breast biopsy History of carpal tunnel release Hx of biopsy Family History (Updated 04/17/23 @ 09:37 by Joycelyn Lara CMA) Father Myocardial infarction Mother Sarcoma Brother Kidney disease Brother H/O ETOH abuse Brother No problems noted. Social History (Updated 09/20/23 @ 11:09 by Epifanio Traylor MD) Housing: Apartment Alcohol intake: former Comment: stopped 2023 Patient Tobacco Use Status: Current everyday Tobacco user Tobacco use type: Cigarette Cigarettes Per Day: 7 e-Cigarette/Vaping Use: Never Used Second Hand Smoke Exposure: No Current occupational status: disabled Cognitive needs: Yes Hearing needs: No Vision needs: Yes Questionnaire PHQ-9 Over the last 2 weeks, how often have you been bothered by any of the following problems? 1. Little interest or pleasure in doing things: several days 2. Feeling down, depressed, or hopeless: more than half the days 3. Trouble falling or staying asleep, or sleeping too much: more than half the days 4. Feeling tired or having little energy: several days 5. Poor appetite or overeating: several days 6. Feeling bad about yourself - or that you are a failure or have let yourself or your family down: several days 7. Trouble concentrating on things, such as reading the newspaper or watching television: not at all 8. Moving or speaking so slowly that other people could have noticed. Or the opposite - being so fidgety or restless that you have been moving around a lot more than usual: not at all 9. Thoughts that you would be better off or of hurting yourself in some way: not at all Total score: 8 Source: Developed by Drs. Ky Reddy, Aysha Blue, Amrit Butcher and colleagues, with an educational vika from [employer]. Thrive Questionnaire Date Thrive assessed: 04/17/23 AUDIT C Alcohol Use Questionnaire (AUDIT-C) 1. How often do you have a drink containing alcohol?: Never 3. How often do you have six or more drinks on one occasion?: Never Total Score: 0 Score Reviewed/Action Taken: No MARY-7 AMB Questionnaire MARY-7 Date MARY - 7 assessed: 04/17/23 Source: Developed by Drs. Ky Reddy, Aysha Blue, Amrit Butcher and colleagues, with an educational vika from [employer]. Physical exam (Primary Care) Vital Signs: Last Vital Signs Pulse 74 11/02/23 09:54 BP 134/76 11/02/23 09:54 Pulse Ox 97 11/02/23 09:54 Oxygen Delivery Method Room Air 11/02/23 09:54 BMI result Body Mass Index 21.4 Tobacco/Smoking Status: Tobacco use Status Tobacco use date assessed 06/16/23 11/02/23 10:01 Patient Tobacco Use Status Current everyday Tobacco 11/02/23 10:01 Tobacco use type Cigarette 11/02/23 10:01 e-Cigarette/Vaping Use Never Used 11/02/23 10:01 PHQ-9: PHQ-9 Score PHQ-9: Total score 8 11/02/23 10:01 Thrive Assessment: Date of Thrive Assessment Date Thrive assessed 04/17/23 11/02/23 10:01 GI Other: Stool positive guaiac Assessment and Plan Assessment & Plan (1) Guaiac positive stools: Code(s): R19.5 - Other fecal abnormalities Orders: Referrals Gastroenterology Referral R19.5 - Other fecal abnormalities Coding Level of Care Code Est Pt Level 3 (84024) Diagnoses Guaiac positive stools R19.5 Additional Codes PHQ-9 - 09737 - PHQ-9 Billing: ([id number])
== END 2023-11-02 10:30 | disposition home or self-care (01) ==
PROVIDERS: Visit Provider Internal Medicine
DX: R19.5 Other fecal abnormalities (principal)
CPT/HCPCS: 99213

== ENCOUNTER 2023-11-06 20:43 | Emergency (ER) | payer MEDICARE, MEDICAID, SELFPAY ==
--- NOTE | ~2023-11-06 | CT_ITS ---
EXAMINATION: CT CERVICAL SPINE WITHOUT CONTRAST CLINICAL INFORMATION: Unwitnessed fall. COMPARISON: CT cervical spine dated May 15, 2023. TECHNIQUE: Noncontrast computed tomography of the cervical spine was performed. This CT examination was performed using dose optimization techniques as appropriate, variously including the following: *Automated exposure control *Adjustment of mA and/or kV according to patient size (this includes techniques or standardized protocols for targeted exams where dose is matched to indication/reason for exam; i.e. extremities or head) *Use of iterative reconstruction technique DLP: 198 mGy-cm FINDINGS: The vertebral bodies and posterior elements demonstrate normal alignment. Vertebral body heights are preserved. There is degenerative disc disease throughout the mid cervical spine, similar to the prior study. There are disc osteophyte complexes at C4-5, C5-6, and C6-7, similar to the prior exam. The C1-C2 relationship is anatomic. The dens is intact. No acute cervical spine fracture. The prevertebral soft tissue is normal in appearance. The paraspinal soft tissues normal in appearance. The lung apices are clear. There is a heterogeneous, predominantly low attenuation nodule occupying the majority of the left lobe of the thyroid gland. The nodule contains dystrophic calcification. Its appearance is stable compared with CT dated May 15, 2023. CT/CT cervical spine wo IV con IMPRESSION: No acute osseous cervical spine abnormality. The left thyroid lobe nodule appears similar to the prior examination. Please refer to ultrasound thyroid dated September 28, 2022 for further workup recommendations. Fleischner guidelines were followed. Electronically signed by: Andrew Lawrence DO 11/06/2023 10:20 PM EDT
--- NOTE | ~2023-11-06 | XR_ITS ---
EXAMINATION: XR HIP, RIGHT, WITH AP PELVIS CLINICAL INFORMATION: Right hip pain. COMPARISON: Bilateral hip and pelvic radiographs dated 08/13/2020; CT abdomen and pelvis dated 08/06/2015. TECHNIQUE: AP and frog-leg lateral views of the right hip are submitted, together with a frontal view of the pelvis. FINDINGS: Bony alignment and mineralization are normal. The femoral heads are smooth. There is a well marginated cyst again seen overlapping the right femoral head related to a degenerative cyst of the acetabular column (3:617). No fracture or dislocation is seen. The sacral iliac joints are symmetrical and maintained. The pubic symphysis is intact. The soft tissue planes are unremarkable. XR/XR hip RT w PEL1V IMPRESSION: A degenerative cyst is seen of the anterior column of the right acetabulum, upon correlation with prior CT imaging. The acetabular joint spaces are well maintained, and no unusual peripheral osteophyte formation is seen of the articular surfaces of the hips. No fracture or dislocation is seen. The sacroiliac joints are symmetric and well maintained. Electronically signed by: Maykel Beck MD 11/06/2023 10:06 PM EDT
--- NOTE | ~2023-11-06 | CT_ITS ---
EXAMINATION: CT HEAD WITHOUT CONTRAST CLINICAL INFORMATION: Unwitnessed fall. COMPARISON: CT head dated May 15, 2023. TECHNIQUE: Contiguous axial imaging was performed from the skull base to vertex without intravenous administration of contrast. This CT examination was performed using dose optimization techniques as appropriate, variously including the following: *Automated exposure control *Adjustment of mA and/or kV according to patient size (this includes techniques or standardized protocols for targeted exams where dose is matched to indication/reason for exam; i.e. extremities or head) *Use of iterative reconstruction technique DLP: 758 mGy-cm FINDINGS: There is no acute intracranial hemorrhage. There is no evidence of acute/subacute cerebral or cerebellar infarction. There is moderate microvascular ischemic change. There is no midline shift or mass effect. There is no extra-axial fluid collection. The ventricles are normal in size. The orbits are symmetric and within normal limits. The calvarium is intact. There is a small mucosal retention cyst along the lateral wall of the left maxillary sinus. There is scattered ethmoid air cell mucosal disease. There is rightward deviation of the nasal septum. The mastoid air cells are well-aerated. CT/CT head/brain wo IV con IMPRESSION: No acute intracranial abnormality. Moderate microvascular ischemic change. Electronically signed by: Andrew Lawrence DO 11/06/2023 10:12 PM EDT
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
[2023-11-06 21:01] VITALS: BP 188/90; PULSE 84; O2SAT 98
[2023-11-06 21:15] VITALS: BP 186/97; PULSE 65; RESP 20; TEMP 37.1; O2SAT 99; BMI 19.8
[2023-11-06 21:52] VITALS: BP 190/92; PULSE 56; RESP 16; TEMP 36.8; O2SAT 99
--- NOTE | 2023-11-06 21:59 | MHC.EDTECH ---
PAT Patel is aware of patient high blood pressure ,Urine sample collected and sent to lab ,Patient daughter at bedside ,All safety measure in place .
[2023-11-06 22:12] LABS: Appearance Urine Clear; Color Urine Yellow; Glucose Urine UA Negative (Negative); Leukocyte Esterase Urine Trace (Negative); Nitrite Urine Negative (Negative); Specific Gravity - Urine 1.015 (1.005-1.025); UMIC TRIGGER UACC YES; Urine Blood Trace (Negative); Urine Ketones Negative (Negative); Urine Protein Trace mg/dL (Neg-Trace)
[2023-11-06 22:30] LABS: Bacteria Urine None Seen (None Seen); Calcium Oxalate Crystals Urine Present; Hyaline Casts Urine 0-2 /LPF (0-2); Squamous Epithelial Cell Urine 0-2 /HPF (0-2); WBC Urine 0-5 /HPF (0-5)
[2023-11-06 23:33] VITALS: BP 198/89; PULSE 62; RESP 16; TEMP 36.8; O2SAT 97
[2023-11-06 23:42] VITALS: BP 162/82; PULSE 61; RESP 16; TEMP 36.9; O2SAT 99
== END 2023-11-06 23:44 | disposition home or self-care (01) ==
PROVIDERS: Physician Assistant; Emergency Provider Emergency Medicine
DX: S39.92XA Unspecified injury of lower back, initial encounter (principal); S19.9XXA Unspecified injury of neck, initial encounter; M25.551 Pain in right hip; R51.9 Headache, unspecified; M54.2 Cervicalgia; F03.90 Unspecified dementia, unspecified severity, without behavioral disturbance, psychotic disturbance, mood disturbance, and anxiety; Y04.8XXA Assault by other bodily force, initial encounter; Y93.89 Activity, other specified; Y92.89 Other specified places as the place of occurrence of the external cause; Y99.8 Other external cause status; F17.210 Nicotine dependence, cigarettes, uncomplicated
CPT/HCPCS: 70450; 72125; 73502; 81001; 99284

== ENCOUNTER 2024-08-22 15:34 | Outpatient (REF) | payer MEDICARE, MEDICAID, SELFPAY ==
--- OUTSIDE RECORDS SUMMARY | 2024-08-22 18:01 | XMS_ITS ---
Author Organization [facility] Address [address] [place] [phone] Care Team Providers Care Color Stripper Name Role Phone Epifanio Traylor MD Primary Care Provider Ky Borja [phone] Encounters Encounter Location Date Provider Diagnosis [facility] [address] [place] [phone] 03/12/2024 Ky Guevara Plan Of Treatment No Information Progress Notes * BELÉN HERNDONDOB: [birth year] (73 yo F)Acc No.[id number]:03/12/2024 Patient:?BELÉN HERNDON :1950???Age:73 Y???Sex:Female Address:[address] [place] [id number] * true * Date:? Generated for Isaci ever/Marie/eTransmitting on:?08/22/2024 06:01 PM EDT
== END 2024-08-22 15:35 | disposition home or self-care (01) ==
LOC: HO.MAMMO 15:34
PROVIDERS: PCP Internal Medicine; Visit Provider Internal Medicine
DX: Z12.31 Encounter for screening mammogram for malignant neoplasm of breast (principal)
CPT/HCPCS: 77063; 77067

== ENCOUNTER → 2024-08-22 15:45 | Outpatient (BNV) | payer MEDICARE, MEDICAID, SELFPAY | PROVIDERS: PCP Internal Medicine; Visit Provider Internal Medicine | DX: Z12.31 Encounter for screening mammogram for malignant neoplasm of breast (principal) | CPT/HCPCS: 77063; 77067 ==

== ENCOUNTER 2024-09-16 15:35 | Emergency (ER) | payer OTHER, MEDICARE, MEDICAID, SELFPAY ==
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
[2024-09-16 15:51] VITALS: BP 198/100; PULSE 87; O2SAT 97
[2024-09-16 16:07] VITALS: BP 148/72; PULSE 59; RESP 18; TEMP 36.6; O2SAT 98; BMI 22.3
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
[2024-09-16 19:04] VITALS: BP 148/72; PULSE 59; RESP 18; TEMP 36.6; O2SAT 98
== END 2024-09-16 19:08 | disposition home or self-care (01) ==
PROVIDERS: Emergency Provider Emergency Medicine; PCP Internal Medicine
DX: S80.12XA Contusion of left lower leg, initial encounter (principal); M79.605 Pain in left leg; V43.62XA Car passenger injured in collision with other type car in traffic accident, initial encounter; Y93.9 Activity, unspecified; Y92.410 Unspecified street and highway as the place of occurrence of the external cause; Y99.8 Other external cause status; F17.210 Nicotine dependence, cigarettes, uncomplicated
CPT/HCPCS: 73552; 99282; 99283

== ENCOUNTER → 2024-09-16 17:01 | Outpatient (BNV) | payer OTHER, MEDICARE, MEDICAID, SELFPAY | PROVIDERS: Emergency Provider Emergency Medicine; PCP Internal Medicine; Visit Provider Radiology Diagnostic Radiology | DX: M79.652 Pain in left thigh (principal); V89.2XXA Person injured in unspecified motor-vehicle accident, traffic, initial encounter | CPT/HCPCS: 73552 ==

== ENCOUNTER 2024-09-25 10:48 | Outpatient (AMB) | payer MEDICARE, MEDICAID, SELFPAY ==
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
[2024-09-25 10:52] VITALS: BP 138/70; PULSE 64; O2SAT 98; BMI 18.2
--- OUTSIDE RECORDS SUMMARY | 2024-09-25 11:31 | XMS_ITS | Encounter Summary ---
Author Organization [employer] [facility] Address [address] [place] [address] Care Team Providers Care Telemetry Technician Name Role Phone Unavailable Primary Care Provider Unavailabl e Encounter Details Date Type Department Care Team (Latest Contact Info) Description 10/23/2020 Abstract [facility]HC CONVERSIONS Dental, Provider, DDS Social History Tobacco Use Types Packs/Day Years Used Date Smoking Tobacco: Never Assessed Comments Unknown Sex and Gender Information Value Date Recorded Sex Assigned at Female 01/10/2022 10:14 AM EDT Legal Sex Female 10:14 AM EDT Gender Identity Choose not to disclose 10:14 AM EDT Sexual Orientation Choose not to disclose 2021 10:14 AM EDT documented as of this encounter Plan of Treatment Not on file documented as of this encounter Visit Diagnoses Not on filedocumented in this encounter
--- OUTSIDE RECORDS SUMMARY | 2024-09-25 11:31 | XMS_ITS | Patient Health Record ---
Author Organization [facility] Address [address] [place] [address] Care Team Providers Care Assisted Living Executive Director Name Role Phone Epifanio Traylor MD Primary Care Provider Ky Borja [phone] Allergies Allergen (clinical drug ingredient) Drug/Non Drug Allergy documented on EMR Reaction Allergy Type Onset Date Status Penicillin Unknown Drug Allergy Active Motrin Unknown Drug Allergy Active Reason For Referral No Information Medications Medication SIG (Take, Route, Frequency, Duration) Notes Start Date End Date Status Meloxicam 15 MG 1 tablet Orally Once a day Active Metoprolol Succinate 100 mg 1 tablet ora lly once a day Active hydroCHLOROthiazide 25 MG 1 tablet Orall y Once a day Active [facility] Stool Softener 100 MG 1 capsule as n eeded Orally Once a day/ as needed Active MiraLax 1 as directed Orally a s directed for 1 days 12/01/2015 Active Dulcolax 5 MG 4 tablets Orally as directed for 1 days 12/01/2015 Active Fluoxetine 20 mg 2 capsules orally on ce a day Active Problems Problem Type SNOMED Code ICD Code Onset Dates Problem Status W/U Status Risk Notes Problem [id number] Encounter for screening for malignant neoplasm of colon (Z12.11) Active confirmed Problem Screening for malignant neoplasm of rectum (546998511) Encounter for screening for malignant neoplasm of rectum (Z12.12) Active confirmed Problem 76393169 Preprocedural examination (Z01.818) Active confirmed Problem 205100488 NSAID long-term use (Z79.1) Active confirmed Encounters Encounter Location Date Provider Diagnosis [facility] [address] [place] [address] 03/12/2024 Ky Guevara Plan Of Treatment Pending Test Test Name Order Date GI BIOPSY 02/18/2016 Future Test Test Name Order Date COLONOSCOPY 11/24/2015 Insurance Providers Payer Name Payer Address Payer Phone Subscriber Number Group Number Insured Name Patient Relationship to Insured Coverage Start Date Coverage End Date MEDICARE OF [place] [address] [place] [id number] BELÉN HERNDON Self - patient is the insured MEDICAID OF [facility] [address] [place] [address] [id number] BELÉN HERNDON Self - patient is the insured Medical (General) History Medical History History ICD Code Colonoscpoy [id number]--negat román except for hyperplastic polyps, an AVM in the ascending colon, diverticulosis, and internal hemorrhoids Depression Hypertension Denies [place],DM,CVA,renal disease Arthritis and osteoporosis Asthma Mild dementia Kidney stone Surgical History Surgery Date(Month/Year) Carpal tunnel surgery-right
== END 2024-09-25 11:43 | disposition home or self-care (01) ==
PROVIDERS: PCP Internal Medicine; Visit Provider Internal Medicine
DX: Z00.00 Encounter for general adult medical examination without abnormal findings (principal); J43.1 Panlobular emphysema; G30.1 Alzheimer's disease with late onset; F20.1 Disorganized schizophrenia; Z72.0 Tobacco use; M54.50 Low back pain, unspecified; K21.9 Gastro-esophageal reflux disease without esophagitis; E04.1 Nontoxic single thyroid nodule; I10 Essential (primary) hypertension; E78.00 Pure hypercholesterolemia, unspecified

== ENCOUNTER 2024-10-13 10:14 | Emergency (ER) | payer MEDICARE, MEDICAID, SELFPAY ==
--- NOTE | 2024-10-13 | ECG_ITS ---
Test Reason : CHEST PAIN Blood Pressure : */* mmHG Vent. Rate : 66 BPM Atrial Rate : 66 BPM P-R Int : 136 ms QRS Dur : 82 ms QT Int : 392 ms P-R-T Axes : * 64 74 degrees QTcB Int : 410 ms Normal sinus rhythm Nonspecific T wave abnormality Abnormal ECG When compared with ECG of 15-May-2023 03:23, MN interval has increased Referred By: Ksenia Tomas Electronically Signed By: JOSEPHINE SELF
--- NOTE | ~2024-10-13 | CT_ITS ---
CLINICAL HISTORY: confusion, reported fall CT head without contrast Comparison: CT/REG/SR - CT HEAD WITHOUT IV CONTRAST - 11/06/23 21:42 EDT Findings: No intra-axial mass, midline shift, hydrocephalus, or acute hemorrhage. There is moderate cortical atrophy. The visualized paranasal sinuses and mastoid air cells are normal. The orbits are within normal limits. There is no acute fracture. Microvascular changes are noted. IMPRESSION: 1. No acute intracranial findings. This document has been electronically signed by: Jhonatan Tirado MD on 10/13/2024 11:47:35
[2024-10-13 10:22] VITALS: BP 122/86; BP 179/77; PULSE 67; PULSE 76; RESP 20; TEMP 36.8; O2SAT 100; BMI 18.2
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
[2024-10-13 10:28] VITALS: BP 168/86; PULSE 66; RESP 20; O2SAT 100
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
--- OUTSIDE RECORDS SUMMARY | 2024-10-13 10:43 | XMS_ITS | Patient Health Record ---
Author Organization [facility] Address [address] [place] [address] Care Team Providers Care Supervisor [employer] Name Role Phone Epifanio Traylor MD Primary Care Provider Ky Borja [phone] Allergies Allergen (clinical drug ingredient) Drug/Non Drug [...] Problem Status W/U Status Risk Notes Problem [id number] Encounter for screening for malignant neoplasm of colon (Z12.11) Active confirmed Problem Encounter for screening for malignant neoplasm of rectum (Z12.12) Active confirmed Problem [id number] Preprocedural examination (Z01.818) Active confirmed Problem [id number] NSAID long-term use (Z79.1) Active confirmed Encounters Encounter Location Date Provider Diagnosis [facility] [address] [place] [address] 03/12/2024 Ky Guevara Plan Of Treatment Pending Test Test Name Order Date GI BIOPSY 02/18/2016 Future Test Test Name Order Date COLONOSCOPY 11/24/2015 Insurance Providers Payer Name Payer Address Payer Phone Subscriber Number Group Number Insured Name Patient Relationship to Insured Coverage Start Date Coverage End Date MEDICARE OF [place] [address] [place] [id number] [phone] [id number] BELÉN HERNDON Self - patient is the insured MEDICAID OF [facility] [address] [place] [address] [phone] [id number] BELÉN HERNDON Self - patient is the insured Medical (General) History Medical History History ICD Code Colonoscpoy 11-28-2005--neg[place] román except for hyperplastic polyps, an AVM in the ascending colon, diverticulosis, and internal hemorrhoids Depression Hypertension Denies IN,DM,CVA,renal disease Arthritis and osteoporosis Asthma Mild dementia Kidney stone Surgical History Surgery Date(Month/Year) Carpal tunnel surgery-right
--- OUTSIDE RECORDS SUMMARY | 2024-10-13 10:43 | XMS_ITS | Encounter Summary ---
Author Organization [employer] [facility] Address [address] [place] [address] Care Team Providers Care Glass Setter Name Role Phone Unavailable Primary Care Provider [...]
[2024-10-13 11:40] LABS: MANUAL DIFF FLAG NO
[2024-10-13 11:42] LABS: Hematocrit 35.9 % (37.0-47.0); Hemoglobin 11.7 g/dl (12.0-16.0); Imm Gran Abs Auto 0.00 X10*3/uL (0.00-0.03); Imm Gran Pct Auto 0.0 % (0.0-0.4); Lymphocytes Absolute Auto 1.5 X10*3/uL (1.2-4.9); Mean Corpuscular HGB Conc 32.6 g/dl (31.0-35.0); Mean Corpuscular Hemoglobin 29.2 pg (27.0-33.0); Mean Corpuscular Volume 89.5 fL (80.0-98.0); NRBC Abs Auto 0.000 X10*3/uL (0.0-0.012); NRBC Pct Auto 0.0 /100WBC (0.0-0.2); Platelet Count 136 X10*3/uL (160-400); Red Blood Count 4.01 X10*6/uL (4.20-5.50); White Blood Count 4.0 X10*3/uL (4.8-10.8)
[2024-10-13 11:57] VITALS: BP 161/70; PULSE 53; RESP 18; O2SAT 99
[2024-10-13 12:05] LABS: Alanine Aminotransferase 14 U/L (0-31); Albumin Level 4.0 g/dL (3.5-5.0); Alkaline Phosphatase 62 U/L (39-117); Anion Gap 10 (12-20); Aspartate Amino Transferase 28 U/L (5-31); Blood Urea Nitrogen 15 mg/dL (9-16); Calcium 8.9 mg/dL (8.4-10.2); Carbon Dioxide 27 mmol/L (22-29); Chloride 108 mmol/L (96-108); Creatinine Clr Calc Pharmacy 34.9; Estimated Glomerular Filt Rate 52; Magnesium 2.1 mg/dL (1.6-2.6); Potassium 3.3 mmol/L (3.3-5.1); Sodium 142 mmol/L (135-145); Total Protein 6.4 g/dL (6.5-8.0); Troponin-I High Sensitivity 14.8 ng/L (<3.5-17.0)
[2024-10-13 13:59] VITALS: BP 184/74; PULSE 50; RESP 16; TEMP 36.6; O2SAT 99
[2024-10-13 14:36] LABS: Troponin-I High Sensitivity 16.6 ng/L (<3.5-17.0)
[2024-10-13 16:06] VITALS: BP 167/79; PULSE 61; RESP 16; O2SAT 98
[2024-10-14 01:53] VITALS: BP 153/78; PULSE 58; RESP 16; TEMP 36.4; O2SAT 100
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
--- NOTE | 2024-10-14 11:51 | MHC.CARE ---
Pt seen by hospital psychiatry team Betsy Padilla CUSTOMER DEVELOPMENT REPRESENTATIVE and recommendation is for discharge.
[2024-10-14 12:09] VITALS: BP 166/74; PULSE 57; RESP 16; TEMP 36.6; O2SAT 97
[2024-10-14 12:29] LABS: Appearance Urine Cloudy; Glucose Urine UA Negative (Negative); PH 7.0 (5.0-9.0); Specific Gravity - Urine 1.010 (1.005-1.025); UMIC TRIGGER UACC YES
[2024-10-14 12:39] LABS: Cannabinoid Screen Urine Not Detected (Not Detect)
[2024-10-14 12:42] LABS: UACC Culture Trigger YES
--- NOTE | 2024-10-14 12:46 | MHC.CM.ED ---
CALL TO PATIENT'S DAUGHTER, ELIAS, AT [phone]. ELIAS DOES NOT FEEL THAT HER MOTHER IS UNSAFE AT HOME SHE DOES NOT WANT HER MOTHER IN A [facility] FACILITY. PROVIDER AWARE AND PLAN IS FOR P.T. EVAL PRIOR TO DC PLANS. RN AND PATIENT AWARE. CM FOLLOWING.
--- NOTE | 2024-10-14 15:43 | MHC.CM.PN ---
PLAN IS FOR DC HOME VIA [facility] FOR APPROX. 18:30. UNIT INFORMED DAUGHTER, ELIAS PATIENT AND RN AWARE OF PLAN
[2024-10-14 16:50] VITALS: BP 166/74; PULSE 57; RESP 16; TEMP 36.6; O2SAT 97
== END 2024-10-14 17:01 | disposition home or self-care (01) ==
PROVIDERS: Registered Nurse Emergency; Social Worker; Emergency Provider Emergency Medicine Emergency Medical Services; PCP Internal Medicine
DX: G30.1 Alzheimer's disease with late onset (principal); F02.80 Dementia in other diseases classified elsewhere, unspecified severity, without behavioral disturbance, psychotic disturbance, mood disturbance, and anxiety; F41.9 Anxiety disorder, unspecified; F20.9 Schizophrenia, unspecified; K21.9 Gastro-esophageal reflux disease without esophagitis; I10 Essential (primary) hypertension; Z79.899 Other long term (current) drug therapy
CPT/HCPCS: 36415; 70450; 80053; 80307; 81001; 83735; 84484; 85025; 87086; 93005; 97162; 99285; S9485

== ENCOUNTER → 2024-10-13 10:23 | Outpatient (BNV) | payer MEDICARE, MEDICAID, SELFPAY | PROVIDERS: Emergency Provider Emergency Medicine Emergency Medical Services; PCP Internal Medicine; Visit Provider Internal Medicine | DX: R94.31 Abnormal electrocardiogram [ECG] [EKG] (principal); R07.89 Other chest pain | CPT/HCPCS: 93010 ==

== ENCOUNTER → 2024-10-13 10:41 | Outpatient (BNV) | payer MEDICARE, MEDICAID, SELFPAY | PROVIDERS: Emergency Provider Emergency Medicine Emergency Medical Services; PCP Internal Medicine; Visit Provider Social Worker | DX: F20.1 Disorganized schizophrenia (principal); F02.80 Dementia in other diseases classified elsewhere, unspecified severity, without behavioral disturbance, psychotic disturbance, mood disturbance, and anxiety | CPT/HCPCS: 99285 ==

== ENCOUNTER 2025-01-07 14:00 | Outpatient (AMB) | payer MEDICARE, MEDICAID, SELFPAY ==
--- OUTSIDE RECORDS SUMMARY | 2024-03-12 07:10 | XMS_ITS ---
Author Organization [facility] Address [address] [place] [phone] Care Team Providers Care Phonograph Needle Tip Maker Name Role Phone Epifanio Traylor MD Primary Care Provider Ky Borja [phone] REASON FOR VISIT Patient presents today for fecal abnormalities Medications Medication SIG (Take, Route, Frequency, Duration) Notes Start Date End Date Status Meloxicam 15 MG 1 tablet Orally Once a day Active Metoprolol Succinate 100 mg 1 tablet ora lly once a day Active hydroCHLOROthiazide 25 MG 1 tablet Orall y Once a day Active Dulcolax 5 MG 4 tablets Orally as directed; Duration: 1 days 12/01/2015 Active Fluoxetine 20 mg 2 capsules orally on ce a day Active [employer] Stool Softener 100 MG 1 capsule as n eeded Orally Once a day/ as needed Active MiraLax 1 as directed Orally a s directed; Duration: 1 days 12/01/2015 Active Encounters Encounter Location Date Provider Diagnosis [facility] [address] [place] [id number] 03/12/2024 Ky Guevara Plan Of Treatment No Information Progress Notes * BELÉN HERNDONDOB: 9 (74 yo F)Acc No.[id number]:03/12/2024 Progress Notes Patient: BELÉN KRISHNA Provider: Eduardo Guevara MD :1950 A ge:73 Y S ex:Female Date:03/12/2024 Address:[address] [place] [address] Pcp:Epifanio Traylor MD Subjective: * Chief Complaints: * 1 . Patient presents today for fecal abnormalities. * Medical History: * Medications: T aking Fluoxetine 20 mg capsule 2 capsules orally once a day , Taking Meloxicam 15 MG Tablet 1 tablet Orally Once a day , Taking Metoprolol Succinate 100 mg tab 1 tablet orally once a day , Taking hydroCHLOROthiazide 25 MG Tablet 1 tablet Orally Once a day , Taking [employer] Stool Softener 100 MG Capsule 1 capsule as needed Orally Once a day/ as needed , Taking MiraLax 1 Powder as directed Orally as directed , Taking Dulcolax 5 MG Tablet Delayed Release 4 tablets Orally as directed Objective: * Vitals: Assessment: Plan: * Treatment: * * The named appointment provid er may or may not be the originator of this progress note, and it is not deemed complete until electronically signed by the appointment provider. Sign off status: Pending * Provider: Eduardo Guevara MD Date: Generated for Kilo curtis/Marie/Tony on: 06:25 PM EDT
[2025-01-07 14:03] VITALS: BP 148/82; PULSE 86; TEMP 36.4; O2SAT 98; BMI 18.6
--- NOTE | 2025-01-07 14:03 | A.OFFPC_ITS ---
Vital Signs 01/07/25 14:03 Height 5 ft 4 in Weight 108 lb 2 oz BMI 18.6 BP 148/82 H Blood Pressure Location Lt brachial Position Sitting Pulse 86 Pulse Source Pulse Oximeter Temp 97.5 F Temp Source Temporal Artery Scan Pulse Oximetry (%) 98 Oxygen Delivery Method Room Air Intake Visit Reasons: cholesterol Accompanied by: Daughter Allergies aspirin (ASA) Allergy (Unknown, Verified 01/07/25 14:07) UNKNOWN ibuprofen (From Motrin) Allergy (Unknown, Verified 01/07/25 14:07) Dizziness Penicillins Allergy (Unknown, Verified 01/07/25 14:07) UNKNOWN rivastigmine (From Exelon) Allergy (Unknown, Verified 01/07/25 14:07) Unknown Tobacco use date assessed: 01/07/25 Fall risk assessment: No Falls in past year Last assessed Fall Risk: 01/07/25 Dental Screening Dental Screen Date: 01/07/25 Did you have a dental visit in the last 12 months?: No Did you have a dental problem in the last 6 months where you did not have access to dental care?: No Was dental information given to patient?: No [facility] Medical History Alcohol abuse Multinodular thyroid Nausea & vomiting Skin tag Trigger finger of all digits of left hand Breast density Benign hematuria Schizophrenia Tobacco abuse Hypercholesterolemia Osteoarthritis, knee Dementia GERD (gastroesophageal reflux disease) Thyroid nodule Vitamin D deficiency Hypertension Renal calculi Surgical History Hx of biopsy History of carpal tunnel release History of breast biopsy Family History Father Myocardial infarction Mother Sarcoma Brother Kidney disease Brother H/O ETOH abuse Brother No problems noted. Social History Housing: Apartment Alcohol intake: current Alcohol intake frequency: holidays/special occasions only Alcohol type: beer Comment: stopped 2023 Patient Tobacco Use Status: Current everyday Tobacco user Tobacco use type: Cigarette Cigarettes Per Day: 7 e-Cigarette/Vaping Use: Never Used Second Hand Smoke Exposure: No Current occupational status: disabled Cognitive needs: Yes Hearing needs: No Vision needs: Yes Questionnaire PHQ-9 Over the last 2 weeks, how often have you been bothered by any of the following problems? 1. Little interest or pleasure in doing things: not at all 2. Feeling down, depressed, or hopeless: not at all 3. Trouble falling or staying asleep, or sleeping too much: not at all 4. Feeling tired or having little energy: several days 5. Poor appetite or overeating: not at all 6. Feeling bad about yourself - or that you are a failure or have let yourself or your family down: not at all 7. Trouble concentrating on things, such as reading the newspaper or watching television: not at all 8. Moving or speaking so slowly that other people could have noticed. Or the opposite - being so fidgety or restless that you have been moving around a lot more than usual: not at all 9. Thoughts that you would be better off or of hurting yourself in some way: not at all Total score: 1 Source: Developed by Drs. Ky Reddy, Aysha Blue, Amrit Butcher and colleagues, with an educational vika from [employer]. Thrive Questionnaire Date Thrive assessed: 01/07/25 I am a: Parent/Caregiver What is your living situation today?: I have a steady place to live Within the past 12 months, did the food you bought not last and you didn't have the money to get more?: Never true Within the past 12 months, did you worry whether your food would run out before you got money to buy more?: Never true Do you have trouble paying for medicines?: No Do you have trouble getting transportation to medical appointments?: No Do you have trouble paying your heating and electricity bill?: No Do you have trouble taking care of your child, family member or friend?: No Do you have trouble with day-to-day activities such as bathing, preparing meals, shopping, managing finances, etc.?: No Are you currently unemployed and looking for a job?: No Are you interested in more education?: No THRIVE Score: 0 AUDIT C Alcohol Use Questionnaire (AUDIT-C) 1. How often do you have a drink containing alcohol?: Monthly or less 2. How many drinks containing alcohol do you have on a typical day when you are drinking?: 1 or 2 3. How often do you have six or more drinks on one occasion?: Never Total Score: 1 MARY-7 AMB Questionnaire MARY-7 Date MARY - 7 assessed: 09/25/24 Feeling nervous, anxious, or on edge: 1 = Several days Not being able to stop or control worryin = Not at all Worrying too much about different things: 1 = Several days Trouble relaxin = Several days Being so restless that it is hard to sit still: 0 = Not at all Becoming easily annoyed or irritable: 1 = Several days Feeling afraid as if something awful might happen: 1 = Several days Total MARY-7 score (0-4 normal; 5-9 mild; 10-14 moderate; 15-21 severe): 5 Source: Developed by Drs. Ky Reddy, Aysha Blue, Amrit Butcher and colleagues, with an educational vika from [employer]. Physical exam (Primary Care) Vital Signs: Last Vital Signs Temp 97.5 F 01/07/25 14:03 Pulse 86 01/07/25 14:03 BP 148/82 H 01/07/25 14:03 Pulse Ox 98 01/07/25 14:03 Oxygen Delivery Method Room Air 01/07/25 14:03 BMI result Body Mass Index 18.6 Tobacco/Smoking Status: Tobacco use Status Tobacco use date assessed 01/07/25 01/07/25 14:09 Patient Tobacco Use Status Current everyday Tobacco 01/07/25 14:09 Tobacco use type Cigarette 01/07/25 14:09 e-Cigarette/Vaping Use Never Used 01/07/25 14:09 PHQ-9: PHQ-9 Score PHQ-9: Total score 1 01/07/25 14:58 Thrive Assessment: Date of Thrive Assessment Date Thrive assessed 01/07/25 01/07/25 14:09 Const General: alert; No acute distress Eyes Conjunctivae: conjunctivae normal Resp Auscultation: clear to auscultation bilaterally Cardio Rate: regular rate Rhythm: regular rhythm GI Inspection: Yes normal to inspection Extrem General: Yes normal to inspection and No edema Office Procedures Flu Questionnaire Does the patient have a severe egg allergy?: No Does the patient have severe life threatening allergies?: No Does the patient have a fever or illness today?: No Has the patient ever had Guillain-[place] Syndrome?: No Has the patient ever had any past reaction to a flu shot?: No Immunizations Fluarix [id number] (PF) 45 mcg (15 mcg x 3)/0.5 mL IM syringe Performing Provider: Epifanio Traylor MD [facility] Administered by: Maria M Chapman LPN on 01/07/25 14:57 Dose Route Admin Location Dispensed Lot Number Expiration Date [facility] Derrick Engineer 0.5 mL IM Left Deltoid 0.5 mL [id number] 09/09/25 [id number] [employer] VIS Given Date VIS Provided VIS Publication Date 01/07/25 Single Vaccine 24 Eligibility Eligibility Date Funding Source Not [facility] Eligible 01/07/25 Private Coding Level of Care Code Est Pt Level 4 (59608) Complex EM visit Add On G2211 Diagnoses Essential hypertension I10 Hypertension type: essential hypertension Hypercholesterolemia E78.00 Gastroesophageal reflux disease without esophagitis K21.9 Esophagitis presence: without esophagitis Panlobular emphysema J43.1 Emphysema type: panlobular Tobacco abuse Z72.0 Major neurocognitive disorder due to another medical condition F02.80 Assessment & Plan Assessment & Plan (1) Hypertension: Code(s): I10 - Essential (primary) hypertension Category: Medical Qualifiers: Hypertension type: essential hypertension Qualified Code(s): I10 - Esse ntial (primary) hypertension Plan: Continue with blood pressure medication. Decrease salt intake and exercise patient on lisinopril 5 mg once a day metoprolol 100 mg once a day (2) Hypercholesterolemia: Code(s): E78.00 - Pure hypercholesterolemia, unspecified Category: Medical Plan: Avoid fried foods, chicken skin, eggs, butter margarine, pastries and meat. Be it pork or beef they have a lot of cholesterol LDL goal of less than 130 and triglyceride of less than 150 on simvastatin 10 mg once a day (3) GERD (gastroesophageal reflux disease): Code(s): K21.9 - Gastro-esophageal reflux disease without esophagitis Category: Medical Qualifiers: Esophagitis presence: without esophagitis Qualified Code(s): K21.9 - Gastro-esophageal reflux disease without esophagitis Plan: Avoid the foods that causes that usually spicy foods, tomato products, juices, coffee, soda and foods that your sensitive to. After eating do not lie down, allow 3-4 hours before in lie down. And keep the head of bed above 30 degrees to avoid the acid from going up. (4) Emphysema lung: Comment: cxr 08/2021 Code(s): J43.9 - Emphysema, unspecified Category: Medical Qualifiers: Emphysema type: panlobular Qualified Code(s): J43.1 - Panlobular emphysema Plan: Patient is strongly advised to stop smoking (5) Tobacco abuse: Code(s): Z72.0 - Tobacco use Category: Medical Plan: Patient is strongly advised to stop smoking! (6) Major neurocognitive disorder due to another medical condition: Code(s): F02.80 - Dementia in other diseases classified elsewhere, unspecified severity, without behavioral disturbance, psychotic disturbance, mood disturbance, and anxiety Category: Medical Plan History of Present Illness The patient is a 74-year-old female presenting for a follow-up visit. Her medical history is significant for being underweight, hypertension, GERD, dementia, hypercholesterolemia, schizophrenia, and she is a smoker. She was last seen in September for an annual well visit. In October, the patient was seen in the emergency room for crying and suicidal ideation, and the subsequent workup was negative. Blood work from October 13 showed mild anemia with a hemoglobin of 11.7, low potassium, and a creatinine of 4.04. Her liver function was fine. For health maintenance, the patient is up to date with her mammogram. Health Maintenance - The patient is up to date with her mammogram. - A bone density scan was mentioned. - The patient was strongly advised to stop smoking. - Cholesterol goals are LDL less than 130 and triglycerides less than 150. Social History - Substance Use: The patient is a smoker and has been strongly advised to quit. Review of Systems - Psychiatric: Reports a history of crying and suicidal ideation in October. Physical Exam Results - Labs from October 13 revealed mild anemia (hemoglobin 11.7), low potassium, and a creatinine of 4.04. - Liver function tests were normal. - A workup in the ER in October was negative. - The patient's mammogram is up to date. Plan Patient was informed and verbally consented to the use of an ambient scribe for clinic note documentation during this visit. 1. Hypertension The patient will continue lisinopril 5 mg once a day and metoprolol 100 mg once a day. 2. Hypercholesterolemia The patient will continue simvastatin 10 mg once a day with a goal LDL of less than 130 and triglyceride of less than 150. 3. Gastroesophageal Reflux Disease The patient was strongly advised to stop smoking to manage her reflux. 4. Tobacco Use Disorder The patient was strongly advised to stop smoking. Discussion Notes I reviewed the patient's medication regimen. For her hypertension, she will continue taking lisinopril 5 mg and metoprolol 100 mg daily. For her hypercholesterolemia, she will continue simvastatin 10 mg daily, with treatment goals of an LDL < 130 and triglycerides < 150. I strongly advised the patient to stop smoking, which will also help with her acid reflux. Patient Instructions - Continue to take lisinopril 5 mg once a day for your blood pressure. - Continue to take metoprolol 100 mg once a day for your blood pressure. - Continue taking simvastatin 10 mg once a day for your cholesterol. - It is very important that you stop smoking. This will also help your acid reflux. Orders: Orders Ferritin Today K59.00 - Constipation, unspecified IRON PROFILE Today K59.00 - Constipation, unspecified Influenza [id number] Immunization Today Z23 - Encounter for immunization Reticulocyte Count Today K59.00 - Constipation, unspecified
--- OUTSIDE RECORDS SUMMARY | 2025-01-07 18:24 | XMS_ITS | Encounter Summary ---
Author Organization [employer] [facility] Address [address] [place] [address] Care Team Providers Care Jewelry Estimator Name Role Phone Unavailable Primary Care Provider [...]
--- OUTSIDE RECORDS SUMMARY | 2025-01-07 18:25 | XMS_ITS | Clinical Summary ---
Author Organization [employer] Address [address] [place] [address] Care Team Providers Care Rehab Physician Name Role Phone Unavailable Primary Care Provider Unavailabl e Social History Tobacco Use Types Packs/Day Years Used Date Smoking Tobacco: Never Assessed Comments Unknown Sex and Gender Information Value Date Recorded Sex Assigned at Female 01/10/2022 10:14 AM EDT Legal Sex Female 10:14 AM EDT Gender Identity Choose not to disclose 10:14 AM EDT Sexual Orientation Choose not to disclose 2021 10:14 AM EDT Plan of Treatment Health Maintenance Due Date Last Done Comments Depression Screening 1950 SDOH Screening 1950 Alcohol/Substance Use Screening 1960 Tobacco Screening 1960 Hepatitis C Screening 1966 DTaP/Tdap/Td Vaccines (1 - Tdap) 06/08/1967 Zoster Vaccines (1 of 2) 1998 Dental X-Ray: Bitewings 10/30/2015 10/28/2014 Dental X-Ray: Full Mouth 10/29/2017 10/28/2014 Pneumococcal Vaccine: 50+ Years (2 of 2 - PCV) 02/26/2020 02/25/2019 Dental Oral Exam 07/08/2022 01/06/2022, , 09/27/2018, Additional history exists Dental Prophylaxis 07/08/2022 01/06/2022, 0 10/23/2020, 02/19/2019, Additional history exists RSV Patients and Patients Aged 60 years or older (1 - 1-dose 75+ series) 06/08/2023 COVID-19 Vaccine ( - 2024- season) 2024 05/11/2021, 12/02/2020, 10/26/2020 Influenza Vaccine (#1) 2024 HIB Vaccines Aged Out No longer eligi ble based on patient's age to complete this topic HPV Vaccines Aged Out No longer eligi ble based on patient's age to complete this topic Hepatitis A Vaccines Aged Out No long er eligible based on patient's age to complete this topic Hepatitis B Vaccines Aged Out No long er eligible based on patient's age to complete this topic IPV Vaccines Aged Out No longer eligi ble based on patient's age to complete this topic Meningococcal B Vaccine Aged Out No l onger eligible based on patient's age to complete this topic Meningococcal Vaccine Aged Out No zahra kourtney eligible based on patient's age to complete this topic RSV under 20 months Aged Out No longe r eligible based on patient's age to complete this topic Rotavirus Vaccines Aged Out No longer eligible based on patient's age to complete this topic Procedures Procedure Name Priority Date/Time Associated Diagnosis Comments PROPHYLAXIS - ADULT Routine 01/06/2022 1 2:00 AM EDT PERIODIC ORAL EVALUATION - ESTABLISHED PATIENT Routine 01/06/2022 12:00 AM EDT INTRAORAL - COMPLETE SERIES OF RADIOGRAPHIC IMAGES Routine 10/28/2014 12:00 AM EDT from Last 3 Months or Most Recently Relevant to Health Maintenance Insurance [address] [place] [address] [place] ADULT [address] [id number] [address] [place] [id number] [address] [id number]
--- OUTSIDE RECORDS SUMMARY | 2025-01-07 18:25 | XMS_ITS | Encounter Summary ---
Author Organization [employer] Address [address] [place] [address] Care Team Providers Care Tour Driver Name Role Phone Unavailable Primary Care Provider Unavailabl e Reason for Visit * Reason Onset Date Comments appt/return call? 07/26/2022 Encounter Details Date Type Department Care Team (Late st Contact Info) Description 07/26/2022 Telephone [facility] [address] [place] [address] Padilla Miller, DMD [address] [place] [address] appt/return call? Social History Tobacco Use Types Packs/Day Years Used Date Smoking Tobacco: Never Assessed Comments Unknown Sex and Gender Information Value Date Recorded Sex Assigned at Female 01/10/2022 10:14 AM EDT Legal Sex Female 10:14 AM EDT Gender Identity Choose not to disclose 10:14 AM EDT Sexual Orientation Choose not to disclose 2021 10:14 AM EDT documented as of this encounter Miscellaneous Notes * Telephone Encounter - Yulisa Reid - 07/26/2022 1:33 PM EDT Daughter of patient called in with patient stating they missed call to schedule appt. I didn't see any note of who reached out to patient to schedule. I told the patient that I was unsure who reachedout to patient for scheduling and informed that I would relay information to office. I did waitlista prophy exam and xrays because she is due for one . documented in this encounter Plan of Treatment Not on file documented as of this encounter Visit Diagnoses Not on filedocumented in this encounter
--- OUTSIDE RECORDS SUMMARY | 2025-01-07 18:25 | XMS_ITS | Patient Health Record ---
Author Organization [facility] Address [address] [place] [address] Care Team Providers Care Melting Operator Name Role Phone Epifanio Traylor MD Primary Care Provider Ky Borja [phone] Allergies Allergen (clinical drug ingredient) Drug/Non Drug [...] s directed; Duration: 1 days 12/01/2015 Active Dulcolax 5 MG 4 tablets Orally as directed; Duration: 1 days 12/01/2015 Active Fluoxetine 20 mg 2 capsules orally on ce a day Active Problems Problem Type SNOMED Code ICD Code Onset Dates Problem Status W/U Status Risk Notes Problem Screening for malignant neoplasm of colon (294004868) Encounter for screening for malignant neoplasm of colon (Z12.11) Active confirmed Problem Screening for malignant neoplasm of rectum (584774570) Encounter for screening for malignant neoplasm of rectum (Z12.12) Active confirmed Problem Preprocedural examination (908679708673883) Preprocedural examination (Z01.818) Active confirmed Problem custodial current use of non-steroidal anti-inflammatory drug (780243937515920) NSAID long-term use (Z79.1) Active confirmed Encounters Encounter Location Date Provider Diagnosis [facility] [address] [place] [address] 03/12/2024 Ky Guevara Plan Of Treatment Pending Test Test Name Order Date GI BIOPSY 02/18/2016 Future Test Test Name Order Date COLONOSCOPY 11/24/2015 Insurance Providers Payer Name Payer Address Payer Phone Subscriber Number Group Number Insured Name Patient Relationship to Insured Coverage Start Date Coverage End Date MEDICARE OF [place] [address] [place] [id number] HERNDONBELÉN HAMLIN Self - patient is the insured MEDICAID OF [place] [address] [place] [phone] [id number] HERNDONBELÉN HAMLIN Self - patient is the insured Medical (General) History Medical History History ICD Code Colonoscpoy 11-28-2005--negat román except for hyperplastic polyps, an AVM in the ascending colon, diverticulosis, and internal hemorrhoids Depression Hypertension Denies [place],DM,CVA,renal disease Arthritis and osteoporosis Asthma Mild dementia Kidney stone Surgical History Surgery Date(Month/Year) Carpal tunnel surgery-right
--- OUTSIDE RECORDS SUMMARY | 2025-01-07 18:25 | XMS_ITS | Encounter Summary ---
Author Organization [employer] [facility] Address [address] [place] [address] Care Team Providers Care Mast Maker Name Role Phone Unavailable Primary Care Provider Unavailabl e Encounter Details Date Type Department Care Team (Latest Contact Info) Description 01/06/2022 Abstract [facility] CONVERSIONS Dental, Provider, DDS Social [...]
== END 2025-01-07 14:58 | disposition home or self-care (01) ==
LOC: HO.HMCH 14:01
PROVIDERS: PCP Internal Medicine; Visit Provider Internal Medicine
DX: I10 Essential (primary) hypertension (principal); J43.1 Panlobular emphysema; F02.80 Dementia in other diseases classified elsewhere, unspecified severity, without behavioral disturbance, psychotic disturbance, mood disturbance, and anxiety; E78.00 Pure hypercholesterolemia, unspecified; K21.9 Gastro-esophageal reflux disease without esophagitis; Z72.0 Tobacco use; Z23 Encounter for immunization

== ENCOUNTER → 2025-01-07 14:00 | Outpatient (BNVA) | payer MEDICARE, MEDICAID, OTHER, SELFPAY | PROVIDERS: PCP Internal Medicine; Visit Provider Internal Medicine | DX: I10 Essential (primary) hypertension (principal); E78.00 Pure hypercholesterolemia, unspecified; K21.9 Gastro-esophageal reflux disease without esophagitis; J43.1 Panlobular emphysema; Z72.0 Tobacco use; F02.80 Dementia in other diseases classified elsewhere, unspecified severity, without behavioral disturbance, psychotic disturbance, mood disturbance, and anxiety; Z23 Encounter for immunization; F32.A Depression, unspecified; K59.00 Constipation, unspecified | CPT/HCPCS: 90471; 90656; 99212 ==